=== PATIENT | male | born 1985 | race Caucasian/White ===

== ENCOUNTER → 2018-06-16 | Outpatient (CLI) | payer BC | LOC: ZCOL.LAB 16:35 | DX: Z01.89 Encounter for other specified special examinations (principal) ==

== ENCOUNTER → 2019-12-14 | Outpatient (CLI) | payer BC, MEDICAID | LOC: ZCOL.LAB 16:27 | DX: L02.11 Cutaneous abscess of neck (principal) ==

== ENCOUNTER → 2020-02-17 | Outpatient (CLI) | payer BC ==
[2020-02-17 13:19] LABS: BASO # 0.1 (0.0-0.2); BASO % 0.7 % (0.0-2.0); EOS # 0.3 (0.0-0.7); EOS % 2.3 % (0-4.0); GRAN # 10.1 (1.4-6.5); GRAN % 68.7 % (42.2-75.2); HEMATOCRIT 42.1 % (42.0-52.0); HEMOGLOBIN 13.8 g/dl (13.5-18.0); LYMPH # 3.1 (1.2-3.4); LYMPH % 21.4 % (20.0-51.0); MEAN CELL VOLUME 86 fl (80.0-100.0); MEAN CORPUSCULAR HEMOGLOBIN 28 pg (27.0-31.0); MEAN CORPUSCULAR HGB CONC 33 g/dl (33.0-37.0); MEAN PLATELET VOLUME 9.1 fl (7.4-10.4); MONO % 6.6 % (1.7-9.3); PLATELET COUNT 437 K/mm3 (130-400); REDCELL DISTRIBUTION WIDTH-CV 13.8 % (11.5-14.5)
[2020-02-17 13:30] LABS: ALBUMIN 4.2 gm/dL (3.5-5.0); BILIRUBIN,TOTAL 0.5 mg/dL (0.0-1.0); CALCIUM 9.5 mg/dL (8.4-10.2); CREATININE, serum 0.72 (0.66-1.25); POTASSIUM 3.8 mmol/L (3.4-5.0); TOTAL PROTEIN 9.5 gm/dL (6.4-8.2)
== END ==
LOC: COL.RAD 12:06
PROVIDERS: Registered Nurse
DX: R19.5 Other fecal abnormalities (principal); R10.9 Unspecified abdominal pain

== ENCOUNTER 2020-09-18 08:15 | Inpatient (IN) | payer BC ==
[~2020-09-18] VITALS: Ht 175.3 cm; Wt 167.0 kg
[2020-09-18 10:00] LABS: BASO # 0.1 (0.0-0.2); BASO % 0.3 % (0.0-2.0); EOS % 0.1 % (0-4.0); GRAN % 84.9 % (42.2-75.2); HEMATOCRIT 42.2 % (42.0-52.0); HEMOGLOBIN 13.9 g/dl (13.5-18.0); LYMPH # 1.1 (1.2-3.4); LYMPH % 7.2 % (20.0-51.0); MEAN CELL VOLUME 85 fl (80.0-100.0); MEAN CORPUSCULAR HEMOGLOBIN 28 pg (27.0-31.0); MEAN CORPUSCULAR HGB CONC 33 g/dl (33.0-37.0); MEAN PLATELET VOLUME 9.1 fl (7.4-10.4); MONO # 1.1 (0.1-0.6); MONO % 7.1 % (1.7-9.3); PLATELET COUNT 414 K/mm3 (130-400); RED BLOOD COUNT 4.94 M/mm3 (4.20-5.60); REDCELL DISTRIBUTION WIDTH-CV 14.2 % (11.5-14.5)
[2020-09-18 10:13] LABS: BILIRUBIN,TOTAL 0.5 mg/dL (0.0-1.0); CALCIUM 9.3 mg/dL (8.4-10.2); CREATININE, serum 0.84 (0.66-1.25); POTASSIUM 4.2 mmol/L (3.4-5.0); TOTAL PROTEIN 8.9 gm/dL (6.4-8.2)
[2020-09-18 10:25] LABS: C-REACTIVE PROTEIN 26.9 mg/dL (0.0-0.9)
[2020-09-18] MEDS ORDERED: CIPRO 500MG TA500 MG PO (11:31)
[2020-09-18] MEDS ORDERED: FLAGYL500 MG PO (11:31)
[2020-09-18 12:00] VITALS: BP 125/75; PULSE 94; TEMP 98
[2020-09-18] MEDS ORDERED: MOTRIN 400400 MG/TAB PO (13:17)
[2020-09-18 14:54] LABS: CALCIUM 9.1 mg/dL (8.4-10.2); CREATININE, serum 0.77 (0.66-1.25); POTASSIUM 4.1 mmol/L (3.4-5.0)
--- NOTE | 2020-09-18 14:55 | NUR ---
Patient admitted to room 324 from Er. Admission paperwork completed. Patient had severe pain upon arrival to room, diladid per orders. Ivf as ordered. Clears provided. Will monitor closely.
[2020-09-18 15:24] VITALS: BP 152/66; PULSE 105; TEMP 98.5
[2020-09-18 17:41] LABS: COLLECTION METHOD CLEAN CATCH
[2020-09-18 18:02] LABS: MUCOUS Present /lpf; PH 5 (5-8); SQUAMOUS EPITHELIAL None Seen /hpf; URINE APPEARANCE Clear; URINE BACTERIA None Seen /hpf; URINE BILIRUBIN Negative (NEGATIVE); URINE BLOOD 1+ (NEGATIVE); URINE COLOR Amber; URINE GLUCOSE Negative (NEGATIVE); URINE KETONE Trace (NEGATIVE); URINE LEUKOCYTE ESTERASE Negative (NEGATIVE); URINE NITRATE Negative (NEGATIVE); URINE PROTEIN(semi-quant) 1+ (NEGATIVE); URINE RBC None Seen /hpf; URINE UROBILINOGEN Negative (NEGATIVE)
--- NOTE | 2020-09-18 18:25 | NUR ---
Patient resting in bed. He was up to the bathroom able to void dark urine. Ua sent to lab. Pain elevated after movement. Request pain medication. Dilaudid per orders. Iv antibioitic as ordered. Tolerates sip of clears. Will report off to nightnurse
[2020-09-18 19:54] VITALS: BP 130/67; PULSE 98; TEMP 98.8
[2020-09-18 23:42] VITALS: BP 130/77; PULSE 101; TEMP 97.3
[2020-09-19 03:13] VITALS: BP 126/78; PULSE 107; TEMP 98
--- NOTE | 2020-09-19 06:15 | NUR ---
PT IN BED. UP INDEPENDENTLY, SHOWERED. DILAUDID FOR ABDOMINAL PAIN. PT DID HAVE ONE EMESIS DURING THE NIGHT. AFEBRILE.
[2020-09-19 07:06] LABS: HEMATOCRIT 44.6 % (42.0-52.0); HEMOGLOBIN 14.3 g/dl (13.5-18.0); MEAN CELL VOLUME 88 fl (80.0-100.0); MEAN CORPUSCULAR HEMOGLOBIN 28 pg (27.0-31.0); MEAN CORPUSCULAR HGB CONC 32 g/dl (33.0-37.0); MEAN PLATELET VOLUME 9.7 fl (7.4-10.4); PLATELET COUNT 433 K/mm3 (130-400); RED BLOOD COUNT 5.08 M/mm3 (4.20-5.60); REDCELL DISTRIBUTION WIDTH-CV 14.3 % (11.5-14.5)
[2020-09-19 07:24] VITALS: BP 133/71; PULSE 94; TEMP 97.7
--- NOTE | 2020-09-19 07:24 | NUR ---
Critical WBC 30 called to - no new orders at this time. Patient reports pain much improved. 06/25. Denies needing dilaudid. Denies nausea. Interested in clear liquids. Broth and jello provided. He is very concerned about having and empty stomach. He is also concerned with needing to have pass flatus.
[2020-09-19 09:00] LABS: BAND 8 % (0-10); LYMPHOCYTE 7 % (20.0-51.0); METAMYELOCYTE 1 % (0-0); NEUTROPHILS 77 % (42.0-75.2)
[2020-09-19 09:01] LABS: PLATELET ESTIMATE INCREASED (NORMAL)
--- NOTE | 2020-09-19 10:36 | NUR ---
Initial visit; Patient thanked Spiritual Advisor for looking in on him and keeping him in Spiritual Advisor's prayers. Spiritual Advisor offered God's blessings.
[2020-09-19 11:59] VITALS: BP 136/72; PULSE 95; TEMP 98.1
--- NOTE | 2020-09-19 12:08 | NUR ---
Plan is to return home. Patient reports that he resides locally and has a friend Luna Jacob as an EMR contact. Patient shares that he lives alone. Patient reports that is PCP is Eula He. Patient reports last appointment in January2020. Patient report that he uses [facility] for Pharmacy and has the walker while in stay. Patient reports that his goals are to walk better/steadier prior to DC. Denies having a DPOA. Declines home health care. Educated on services available. No additional concerns idntified at this time. Will follow for supports.
--- NOTE | 2020-09-19 14:09 | NUR ---
Patient resting in bed. Iv to left upper arm dc, patient reports pain at IV site. Marilee HERNANDEZ restarted new IV for patient to Rfa, he tolerated well. Was able to receive pain, nausea , and antibioics medications. Instructed patient to take it easy with clear liquids if they are increased abdominal pain. He continues to describe pain as gas pain.
[2020-09-19 16:30] VITALS: BP 133/69; PULSE 97; TEMP 98.4
--- NOTE | 2020-09-19 17:40 | NUR ---
Patient taking it easy with liquids. He is concerned about having an empty stomach-reviewed IVF with him & that they will keep him hydrated. Dialudid as ordered for pain. Encouraged patient to get up and ambulate the halls.
--- NOTE | 2020-09-19 19:32 | NUR ---
REPORT RECEIVED FROM NURSE RDZ. PATIENT RESTING IN BED. REPORT GOOD PAIN CONTROL, STILL C/O OF NAUSEA, ZOFRAN GIVEN 15 MINUTE PRIOR. WILL CONTINUE TO MONITOR.
[2020-09-19 20:17] VITALS: BP 134/66; PULSE 108; TEMP 97.6
[2020-09-20 00:16] VITALS: BP 117/51; PULSE 94; TEMP 98.4
[2020-09-20 04:07] VITALS: BP 125/70; PULSE 105; TEMP 98.1
[2020-09-20 06:51] LABS: HEMATOCRIT 38.8 % (42.0-52.0); HEMOGLOBIN 12.9 g/dl (13.5-18.0); MEAN CELL VOLUME 86 fl (80.0-100.0); MEAN CORPUSCULAR HEMOGLOBIN 29 pg (27.0-31.0); MEAN CORPUSCULAR HGB CONC 33 g/dl (33.0-37.0); PLATELET COUNT 379 K/mm3 (130-400); RED BLOOD COUNT 4.49 M/mm3 (4.20-5.60)
[2020-09-20 07:05] LABS: CALCIUM 8.7 mg/dL (8.4-10.2); CREATININE, serum 0.81 (0.66-1.25); POTASSIUM 4.1 mmol/L (3.4-5.0)
--- NOTE | 2020-09-20 07:14 | NUR ---
CRITICAL WBC CALLED TO UPDATE GIVEN
[2020-09-20 07:50] LABS: C-REACTIVE PROTEIN 34.9 mg/dL (0.0-0.9)
[2020-09-20 08:39] VITALS: BP 119/66; PULSE 89; TEMP 98.4
--- NOTE | 2020-09-20 08:48 | NUR ---
Patient resting in bed. rounded & plan of care reviewed. Offered to ambulate halls with patient & he is wanting to try & sleep at this time. Denies the need for pain medication. Will monitor.
--- NOTE | 2020-09-20 11:08 | NUR ---
Mechanical Developer Prover met with the patient to follow up. The patient plans to return home at discharge. The patient expressed concerns about returning home alone if he has surgery. SW discussed options. SW staffed with the patient's nurse regarding the patient's concerns. It is still not known if the patient will have surgery at this time. SW will continue to follow to ensure the safest discharge possible.
[2020-09-20 12:03] VITALS: BP 108/60; PULSE 94; TEMP 98.6
--- NOTE | 2020-09-20 12:06 | NUR ---
Again asked patient to walk halls, refuses at this time. States he is too tired. Will octaviano.
--- NOTE | 2020-09-20 13:16 | NUR ---
Patient standing at his bedside. Reports a "boil" opened up. Bandaid provided. Jacob reports he has been in the bathroom an had a loose stool.
[2020-09-20 15:55] VITALS: BP 108/57; PULSE 91; TEMP 98.9
--- NOTE | 2020-09-20 19:29 | NUR ---
Patient in positive spirits. Reports he is feeling better. He continues to use clear liquids sparingly. Nausea medication provided per requst, but he did not feel like he needed pain medication. He reports flatus & Bms have "opened" him up. Ivf per order to Rfa. Continue to encourage activity, not wanting to ambulte halls. [facility]
[2020-09-20 20:24] VITALS: BP 108/60; PULSE 94; TEMP 98.7
[2020-09-21] VITALS (7 sets, daily range): BP systolic 96–123; BP diastolic 46–59; PULSE 74–95; TEMP 97.3–98.5
--- NOTE | 2020-09-21 06:04 | NUR ---
PATIENT REPORT FELLING MUCH BETTER TODAY. CONTINUES TO TAKE ONLY SIP OF WATER TO PREVENT BLODDING. NAUSEA MEDICATION GIVEN X1 AND DILAUDID IV X2 ORDERED. PATIENT HAD A SHOWER LAST NIGHT. PATIENT INDEPENDENT IN ROOM. CONTINUE WITH IVF AND IV ABX. WILL CONTINUE TO MONITOR.
[2020-09-21 06:59] LABS: HEMOGLOBIN 11.4 g/dl (13.5-18.0); MEAN CELL VOLUME 87 fl (80.0-100.0); MEAN CORPUSCULAR HEMOGLOBIN 28 pg (27.0-31.0); MEAN CORPUSCULAR HGB CONC 33 g/dl (33.0-37.0); MEAN PLATELET VOLUME 9.5 fl (7.4-10.4); PLATELET COUNT 421 K/mm3 (130-400); RED BLOOD COUNT 4.03 M/mm3 (4.20-5.60)
[2020-09-21 07:07] LABS: CALCIUM 8.3 mg/dL (8.4-10.2); CREATININE, serum 0.95 (0.66-1.25); POTASSIUM 3.6 mmol/L (3.4-5.0)
[2020-09-21 07:34] LABS: C-REACTIVE PROTEIN 20.6 mg/dL (0.0-0.9)
--- NOTE | 2020-09-21 10:01 | NUR ---
Patient is resting in bed, alert and oriented x 4, vital signs stable, no pain, nausea or vomiting. Patient discomfort in the abdomen but tolerated. No further needs at the moment. Call light within reach.
--- NOTE | 2020-09-21 10:43 | NUR ---
AGREE WITH BRYCE'S ASSESSMENTS CHARTED THIS AM.
--- NOTE | 2020-09-21 18:45 | NUR ---
Patient is resting in bed. He just received his dose of antibiotics. Reports pain of 5 out of 10, in his abdomen. Refuses pain medication. No further needs at the moment. Call ligth within reach.
--- NOTE | 2020-09-21 19:10 | NUR ---
REPORT RECEIVED FROM OUT GOING NURSE. PATIENT FOUND RESTING IN BED. ON NO DISTRESS AT THIS TIME. CALL WITHIN REACH.
[2020-09-22 03:38] VITALS: BP 119/60; PULSE 87; TEMP 97.5
[2020-09-22 06:35] LABS: C-REACTIVE PROTEIN 8.5 mg/dL (0.0-0.9); CALCIUM 8.1 mg/dL (8.4-10.2); CREATININE, serum 0.77 (0.66-1.25); POTASSIUM 3.5 mmol/L (3.4-5.0)
[2020-09-22 07:19] VITALS: BP 113/52; PULSE 80; TEMP 98
--- NOTE | 2020-09-22 08:15 | NUR ---
Pt resting in bed up on entering the room. Pt states that he has been getting up almost hourly to have a bowel movement. He reports feeling bloated and has only had approximately 120ml to drink through the night. Pt reports feeling steady on his feet. Pt stated that someone will be dropping off clothes for him and then he would like to shower. Informed pt to notify nursing when he is ready. No other needs, will continue to monitor
[2020-09-22 09:00] LABS: HEMATOCRIT 33.3 % (42.0-52.0); HEMOGLOBIN 10.6 g/dl (13.5-18.0); MEAN CELL VOLUME 88 fl (80.0-100.0); MEAN CORPUSCULAR HEMOGLOBIN 28 pg (27.0-31.0); MEAN CORPUSCULAR HGB CONC 32 g/dl (33.0-37.0); MEAN PLATELET VOLUME 9.7 fl (7.4-10.4); PLATELET COUNT 429 K/mm3 (130-400); REDCELL DISTRIBUTION WIDTH-CV 14.2 % (11.5-14.5)
--- NOTE | 2020-09-22 11:12 | NUR ---
Informed pt that he is able to order a low fiber diet, educated pt on room service.
[2020-09-22 12:00] VITALS: BP 117/58; PULSE 73; TEMP 98.2
--- NOTE | 2020-09-22 15:00 | NUR ---
Pt tolerated his low fiber diet, Dr Byrd has been in to see patient, no new orders at this time. No other needs verbalized, will continue to monitor
[2020-09-22 15:41] VITALS: BP 111/47; PULSE 81; TEMP 97.9
--- NOTE | 2020-09-22 18:10 | NUR ---
Pt currently sitting up in the chair. States that his abd is a little more uncomfortable right now, but denies the need for pain medication. He has ordered something to eat for dinner. No other needs or complaints, call light within reach
[2020-09-22 19:44] VITALS: BP 119/50; PULSE 75; TEMP 98.6
--- NOTE | 2020-09-22 21:36 | NUR ---
PATIENT RESTING IN BED. ALERT AND ORIENTED. PATIENT REPORT HIS BELLY IS ADRY BETTER. TOLERATING LOW FIBER DIET. DENIES NAUSEA/VOMITING TODAY. REPORTS MOVING HIS BOWEL MULTIPLE TIME A DAY WITH GOOD RELEIVES FROM HIS BELLY BLOATING. PATIENT INDEPENDENT IN ROOM. TAKE A SHOWER TONIGHT. PLAN FOR POSSIBLE DISCHARGE TOMORROW.
[2020-09-23 00:08] VITALS: BP 125/52; PULSE 79; TEMP 98
[2020-09-23 04:04] VITALS: BP 124/72; PULSE 72; TEMP 97
[2020-09-23 07:05] LABS: HEMATOCRIT 35.9 % (42.0-52.0); HEMOGLOBIN 11.6 g/dl (13.5-18.0); MEAN CELL VOLUME 88 fl (80.0-100.0); MEAN CORPUSCULAR HEMOGLOBIN 29 pg (27.0-31.0); MEAN CORPUSCULAR HGB CONC 32 g/dl (33.0-37.0); PLATELET COUNT 466 K/mm3 (130-400); RED BLOOD COUNT 4.06 M/mm3 (4.20-5.60); REDCELL DISTRIBUTION WIDTH-CV 14.2 % (11.5-14.5)
[2020-09-23 07:24] VITALS: BP 127/49; PULSE 72; TEMP 97.9
--- NOTE | 2020-09-23 09:30 | NUR ---
Pt doing well this morning. He reported that he had a great night and was able to get some sleep. He is tolerating the low fiber diet. Pt plans on going home today. No other needs verbalized, will continue to monitor
[2020-09-23 11:44] VITALS: BP 120/58; PULSE 76; TEMP 97.4
--- NOTE | 2020-09-23 14:13 | NUR ---
Reviewed discharge instructions with pt to include follow up appointment and prescriptions. INT removed from right forearm. Pt escorted out via wheelchair.
--- NOTE | 2020-09-23 14:36 | NUR ---
The patient discharged home today, 09/23. He is independent and has no needs.
[2020-12-19] MEDS ORDERED: ROXICODONE 55 MG/TAB PO (10:52)
[2020-12-19] MEDS ORDERED: AMOXICILLIN 8751 TAB PO (10:53)
[2020-12-27] MEDS ORDERED: CIPRO 500MG TA500 MG PO (08:30)
[2020-12-27] MEDS ORDERED: ZOFRAN 4MG T4 MG/TAB PO (08:31)
[2020-12-27] MEDS ORDERED: PERCOCET 325 MG1 TA2 PO (08:31)
[2021-01-11] MEDS ORDERED: INVANZ INJ1 G/VIAL IV (09:20)
[2021-01-11] MEDS ORDERED: DIFLUCAN 4400 MG/200 IV (09:21)
[2021-01-12] MEDS ORDERED: PERCOCET 325 MG1 TA2 PO (07:57)
[2021-01-17] MEDS ORDERED: ROXICODONE 55 MG/TAB PO (14:03)
[2021-01-27] MEDS ORDERED: ROXICODONE 55 MG/TAB PO (17:05)
[2021-02-08] MEDS ORDERED: ROXICODONE 55 MG/TAB PO (08:42)
== END 2020-09-23 14:14 | disposition home or self-care (01) | DRG 392 ==
LOC: COL.ER 08:15 → SURG 11:20
PROVIDERS: Family Medicine; ADMIT Surgery
DX: K57.20 Diverticulitis of large intestine with perforation and abscess without bleeding (principal); Z68.43 Body mass index [BMI] 50.0-59.9, adult; E66.01 Morbid (severe) obesity due to excess calories; Z87.891 Personal history of nicotine dependence
CPT/HCPCS: J1170; J1650; J2270; J2405; J2543; J7120; Q9967

== ENCOUNTER 2020-11-08 16:02 | Inpatient (IN) | payer BC ==
[~2020-11-08] VITALS: Ht 175.3 cm; Wt 146.3 kg
[~2020-11-08 16:02] MED LIST: CIPRO 500MG TA500 MG PO; FLAGYL500 MG PO; MOTRIN 400400 MG/TAB PO
[2020-11-23] VITALS (10 sets, daily range): BP systolic 88–125; BP diastolic 54–80; PULSE 81–94; TEMP 97–97.9
[2020-11-23] MEDS ORDERED: MOTRIN 200200 MG/TAB PO (08:03)
[2020-11-23] MEDS ORDERED: TYLENOL 325MG325 MG PO (08:03)
--- NOTE | 2020-11-23 08:27 | NUR ---
The patient ambulated back to [place] independently using a steady gait and appeared to tolerate the activity well. Vital signs obtained. Consent signed. Assessment completed. 18G IV started in right hand with one stick, LR infusing without difficulty. Blood obtained from IV start for labs as ordered. Call light is within reach. Will continue to monitor the patient.
[2020-11-23 08:29] LABS: BASO # 0.1 (0.0-0.2); BASO % 1.4 % (0.0-2.0); EOS # 0.2 (0.0-0.7); EOS % 2.8 % (0-4.0); GRAN % 58.2 % (42.2-75.2); HEMATOCRIT 40.9 % (42.0-52.0); HEMOGLOBIN 13.3 g/dl (13.5-18.0); LYMPH # 2.6 (1.2-3.4); MEAN CELL VOLUME 82 fl (80.0-100.0); MEAN CORPUSCULAR HEMOGLOBIN 27 pg (27.0-31.0); MEAN CORPUSCULAR HGB CONC 33 g/dl (33.0-37.0); MEAN PLATELET VOLUME 8.4 fl (7.4-10.4); MONO # 0.5 (0.1-0.6); MONO % 6.2 % (1.7-9.3); PLATELET COUNT 624 K/mm3 (130-400); RED BLOOD COUNT 4.97 M/mm3 (4.20-5.60); REDCELL DISTRIBUTION WIDTH-CV 14.9 % (11.5-14.5)
[2020-11-23 08:40] LABS: CALCIUM 9.5 mg/dL (8.4-10.2); CREATININE, serum 0.77 (0.66-1.25)
--- NOTE | 2020-11-23 09:45 | NUR ---
The patient was taken over to the recovery room to have a block placed prior to surgery. The patient's chart was taken with him. The patient's belongings were taken over to the recovery room and will be transferred with the patient when he is taken to the 3rd floor post operatively.
[2020-11-23 18:47] LABS: HEMATOCRIT 40.7 % (42.0-52.0); HEMOGLOBIN 12.7 g/dl (13.5-18.0)
--- NOTE | 2020-11-23 19:18 | NUR ---
Dr Byrd notified of hypotension, continue to monitor.
--- NOTE | 2020-11-23 19:30 | NUR ---
Report received, assumed care for overnight caregiver. Assessment complete. A&Ox3-drowsy. Currently on post op vitals-noted to by slightly hypotensive earlier today but improving. Rating pain 7/10 on pain scale-described as sharp pains in abdomen on right side as well as shoulder pain. Discussed gas pains and need for early ambulation to help with pains. Verbalizes understanding. IS given with instruction on use. Noted to have yellow urine to cole cath with sediment. Draining well. IV fluids continue to infuse to right wrist IV. Has not tolerated any PO. Denies nausea just states he doesnt want anything to eat. Plan of care discussed for this shift to include medications/up out of bed/calling for questions/concerns. Verbazlies understanding/denies needs. Call light in reach. Will monitor.
[2020-11-24] VITALS (10 sets, daily range): BP systolic 116–136; BP diastolic 64–92; PULSE 77–121; TEMP 97.2–98.7
--- NOTE | 2020-11-24 00:50 | NUR ---
Patient still rating pain 8/10 on pain scale despite receiving PO pain meds as well as two doses of IV dilaudid. VS more stable now-dilaudid BLACK PICKLER initiated per dr order. Loading dose given with instructions on use for next dose. Notified RT of BLACK PICKLER initiation. Verbalizes understanding/denies questions.
--- NOTE | 2020-11-24 02:11 | NUR ---
Called with c/o nausea. Dry heaving when this nurse went to room. Zofran given per dr ferrari. States DRAFTER MECHANICAL is managing pain much better. Will continue to monitor.
--- NOTE | 2020-11-24 04:55 | NUR ---
Called with c/o nausea. States he thinks his blood sugar is low. When asked if he has problems with blood sugar states "No, I just know sometimes when I havent eaten i feel like its low and i eat and feel better." Blood sugar checked at this time-128. Requesting OJ but on clear liquid diet and has complained of nausea. Diet ordered is clear liquids sparingly. Will offer jello/clear juice.
--- NOTE | 2020-11-24 06:36 | NUR ---
Has not tolerated a lot of PO but order to not advance diet/and use sparingly. Did complain of hiccups this morning. Received zofran for nausea. Switched to HOLISTIC HEALTH PRACTITIONER at approx 0050 with good pain relief. VS remained stable. IV fluids continue to infused at 100ml/hr. Morrow cath with adequate output. Denies current needs. Call light in reach. Will monitor.
[2020-11-24 07:07] LABS: HEMATOCRIT 37.5 % (42.0-52.0); HEMOGLOBIN 12.2 g/dl (13.5-18.0)
[2020-11-24 07:21] LABS: CALCIUM 8.8 mg/dL (8.4-10.2); CREATININE, serum 1.24 (0.66-1.25); MAGNESIUM 1.7 mg/dL (1.6-2.3); POTASSIUM 5.3 mmol/L (3.4-5.0)
--- NOTE | 2020-11-24 08:08 | NUR ---
PT IS SITTING UP IN BED, COMPLAINTS OF LEFT SIDED SHOULDER ET FLANK PAIN. RATES PAIN 10/10. PT REFUSES TO EAT @ THIS TIME, STATES THAT THE PAIN IS TOO MUCH. PT IS ASSISTED TO CHANGE INTO A CLEAN GOWN ET BED SHEETS ARE CHANGED.
--- NOTE | 2020-11-24 08:33 | NUR ---
PT CALMER @ THIS TIME. RESPIRATIONS UNLABORED. PT THANKS STAFF FOR PATIENCE. PT LAYS BACK INTO BED WITH ASSISTANCE. LOVENOX ET MOTRIN ADMINSTERED. PT GIVEN JELLO TO EAT, MORE ICE WATER REQUESTED.
--- NOTE | 2020-11-24 13:33 | NUR ---
PT IS VOMITING, APPEARS TO BE GREEN GATORADE THAT HE HAS BEEN DRINKING. PT IS ENCOURAGED TO SLOW DRINKING FLUIDS TO DECREASE VOMITING/NAUSEA. PT INSISTS ON DRINKING MORE, STATES "DR AND I HAVE TALKED ABOUT THIS BEFORE ET I NEED TO DRINK MORE TO MAKE MYSELF VOMIT MORE TO CLEAR UP WHAT'S STUCK."
--- NOTE | 2020-11-24 14:40 | NUR ---
First visit from the disaster recovery specialist. No needs right now.
--- NOTE | 2020-11-24 15:13 | NUR ---
PT IS VOMITING. EMESIS IS BRIGHT GREEN LIKE GATORADE HE HAS BEEN DRINKING. PT AGREES TO STOP DRINKING FLUIDS FOR AWHILE. DRESSING ON MIDLINE ABDOMINAL INCISION IS INTACT, SAME AMOUNT OF DRAINAGE SEEN THROUGH AQU[facility]LL WAS SEEN THIS MORNING. PT AGREES TO ALLOW DRESSING TO BE CHANGED AFTER HIS "STOMACH CALMS DOWN".
[2020-11-24 15:18] LABS: CALCIUM 8.8 mg/dL (8.4-10.2); CREATININE, serum 1.85 (0.66-1.25); POTASSIUM 5.3 mmol/L (3.4-5.0)
--- NOTE | 2020-11-24 15:26 | NUR ---
KAROLYN attempted to meet with patient twice; both times patient stated he was too nautious to talk. He requested that this worker return tomorrow. KAROLYN will f/up 11/25 to assess.
--- NOTE | 2020-11-24 17:51 | NUR ---
Dressing changed on midline incision. Old drainage on aquacell. Patient currently has no complaints of nausea and pain has been controlled with TREASURY ACCOUNTANT. VSS. IV CDI, fluids infusing. Nurse provided swabs to the patient. No further needs expressed. Call light within reach
--- NOTE | 2020-11-24 17:58 | NUR ---
AQUACELL DRESSING CHANGED ON MIDLINE ABDOMINAL INCISION. SCOTT INTACT, WELL APPROXIMATED. PT TOLERATES WELL.
--- NOTE | 2020-11-24 19:00 | NUR ---
RECEIVED CHANGE OF SHIFT REPORT FROM DAY SHIFT NURSE.
[2020-11-25] VITALS (9 sets, daily range): BP systolic 122–138; BP diastolic 60–73; PULSE 69–134; TEMP 97.6–99
--- NOTE | 2020-11-25 07:26 | NUR ---
CHANGE OF SHIFT REPORT GIVEN TO DAY SHIFT NURSE, KALPESH HERNANDEZ AND STUDENT NURSESANYA.
[2020-11-25 08:49] LABS: HEMOGLOBIN 11.3 g/dl (13.5-18.0)
[2020-11-25 08:51] LABS: HEMATOCRIT 35.2 % (42.0-52.0)
[2020-11-25 09:00] LABS: CALCIUM 8.2 mg/dL (8.4-10.2); CREATININE, serum 2.03 (0.66-1.25); POTASSIUM 4.8 mmol/L (3.4-5.0)
--- NOTE | 2020-11-25 09:21 | NUR ---
SW met with patient at b/s after 2 prior failed attempts. Patient states he lives alone in apartment w/ stairs in [place]; no family or support in immediate area. No parents but lots of family members in [place]. Patient states his cousin, Marie Salgado is his DPOA. He has no DME's, states he is fully independent, works f/t and has insurance through [facility]. Per patient PCP is Eula Hinojosa. *Anticipate d/c home with no needs
--- NOTE | 2020-11-25 09:43 | NUR ---
Notified Dr Byrd of todays labs. New orders received. Discussed pain management with him as he didn't want anything as he was told it would slow down bowel activity. Stated that he still needs to be able get up as staying in bed will also not help.
--- NOTE | 2020-11-25 10:00 | NUR ---
Dressing removed by Dr Byrd earlier this am. Incision mostly well approximated, couple areas it is open with minimal drainage. Incision cleaned and new aquacel applied. Pt did have complaints of pain when I put the bed flat. Discussed importance of moving and not staying in one position.
--- NOTE | 2020-11-25 11:00 | NUR ---
Pt recently stood up at side of bed with help from MACT student. Pt had a lot of pain complaints and was reported that he did start to have rapid shallow breathing. Educated pt that he needs to work on slow deep breaths. Pt did and started to appear more relaxed. Had him do his incentive spirometer. Pt did a rapid short breath and then sat it down. Worked with pt on the proper was to use the IS. Informed him that he needs to do it several times an hour and slow deep breaths to open his lungs.
--- NOTE | 2020-11-25 13:45 | NUR ---
Pt has been nauseated most of the day. Educated him to take fluids slow and only sips. He is refusing oral medicaiton
--- NOTE | 2020-11-25 14:51 | NUR ---
pt resting with eyes closed, even non labored breathing
--- NOTE | 2020-11-25 16:47 | NUR ---
Notified Dr Byrd of pt being tachy, will give pain medication
--- NOTE | 2020-11-25 16:55 | NUR ---
Offered oral pain medication to pt, pt refused, stated that it does not help. Encouraged him to use his BUSINESS ASSISTANT pain medication to help get pain under control.
--- NOTE | 2020-11-25 18:21 | NUR ---
Pt unable to get IS above 500. Pt had to be re-educated on proper use. He only wanted to do it once, had him do at least 5. Reminded him that he needs to be doing it every hour.
--- NOTE | 2020-11-25 23:56 | NUR ---
Patient c/o shortness of breath, SPO2@ 92%, Resp rate 24, Pulse 135, Call placed to Dr. Richard NON: decrease fluids to 100ml/hr, telemetry, EKG. Completed at this time. Patient updated on plan of care and verbalizes understanding.
[2020-11-26] VITALS (8 sets, daily range): BP systolic 124–146; BP diastolic 59–82; PULSE 115–120; TEMP 97.8–98.8
--- NOTE | 2020-11-26 04:50 | NUR ---
Patient is resting quietly, ambulated x 2 in hallway during shift, tolerated well, telemetry in use ST Dickson MD aware, STUCCO PLASTERER in use- tolerating well, midline incision with dressing c/d/i, 5 abdominal lap sites wnl, cole with dark shaniqua urine per gravity, VS stable, will continue to monitor.
--- NOTE | 2020-11-26 10:00 | NUR ---
Patient alert and oriented, answers questions appropriately. See assessment. Abdomen soft, obese. Bowel sounds absent except for hypoactive in RLQ. Midline incision and lap sites with aurelia intact, no drainage noted, MANAGER PART. Lungs decreased in bases, clear in upper lobes. CDB and IS re-educated and encouraged. Post op exercises reviewed with patient. Offered x2 to assist patient to ambulate in walls, declined both times. Encouraged ambulation and activity to decrease post op complications. Patient not interested in activity. No other c/o at this time.
[2020-11-26 10:06] LABS: CALCIUM 8.3 mg/dL (8.4-10.2); CREATININE, serum 1.07 (0.66-1.25)
--- NOTE | 2020-11-26 11:41 | NUR ---
Cole catheter removed at 1000 per Drs order. Pericare completed. Voided 200ml immediately after cole removal.
--- NOTE | 2020-11-26 19:19 | NUR ---
Patient re-educated several times today about importance of CDB, IS and ambulation. Frequently declined ambulation in halls. No c/o at this time.
[2020-11-27] VITALS (9 sets, daily range): BP systolic 134–142; BP diastolic 63–78; PULSE 100–119; TEMP 97.6–99.1
--- NOTE | 2020-11-27 04:07 | NUR ---
Patient resting quietly, Dr. Richard inserted L subclavian triple lumen picc line during this shift, patient tolerated well, Xray confirmed placement, tolerating Dilaudid POLYSOMNOGRAPH TECH w/o issue, ambulated x 1 in the hallway this shift, VS stable, abdomen with aurelia intact to midline incision and 5 lap sites, no s/s of infection noted, hypoactive BS noted.
--- NOTE | 2020-11-27 10:30 | NUR ---
Patient alert and oriented, answers questions appropriately. See assessment. Abdomen soft, obese, non distended. Bowel sounds hypoactive x4 quads. No flatus. Midline and lap sites to abdomen with aurelia intact, JOSE, no drainage or redness noted. Left subclavian in place, dressing intact, scant drainage noted, flushes well with blood return noted. QM CONSULTANT infusing. Post op exercises and activity reviewed with patient. Patient states he remains too weak to do much activity and would prefer to remain in bed for the day. Reviewed with patient the importance of activity and complying with post op exercises. Patient reluctantly ambulated in halls and sits up in chair.
[2020-11-27 10:58] LABS: MEAN CELL VOLUME 85 fl (80.0-100.0); MEAN CORPUSCULAR HGB CONC 31 g/dl (33.0-37.0); MEAN PLATELET VOLUME 9.1 fl (7.4-10.4); PLATELET COUNT 463 K/mm3 (130-400); RED BLOOD COUNT 3.22 M/mm3 (4.20-5.60); REDCELL DISTRIBUTION WIDTH-CV 15.7 % (11.5-14.5)
[2020-11-27 10:59] LABS: HEMATOCRIT 27.4 % (42.0-52.0); HEMOGLOBIN 8.6 g/dl (13.5-18.0); MEAN CORPUSCULAR HEMOGLOBIN 27 pg (27.0-31.0)
[2020-11-27 11:06] LABS: CREATININE, serum 0.78 (0.66-1.25); POTASSIUM 3.5 mmol/L (3.4-5.0)
[2020-11-27 11:35] LABS: BAND 2 % (0-10); LYMPHOCYTE 6 % (20.0-51.0); NEUTROPHILS 85 % (42.0-75.2)
[2020-11-27 11:36] LABS: ANISOCYTOSIS 1+; HYPOCHROMIA 2+; PLATELET ESTIMATE INCREASED (NORMAL)
--- NOTE | 2020-11-27 12:00 | NUR ---
Patient continues to call frequently, for things such as pulling his blanket up and adjusting his oxygen. Patient has also refused to do things such as brush his teeth and wash his own face. States he is too weak to do so. Reviewed with patient importance of performing his own self cares and increasing activity. Patient curses and becomes upset when encouraged to perform self cares, states he is too weak and it causes too much pain. WARD CLERK continues to infuse.
--- NOTE | 2020-11-27 12:28 | NUR ---
KAROLYN called to follow up with spouse Trinity [phone] to secure placement choice. Voicemail left to return call to KAROLYN. KAROLYN will continue to follow up with inquire about choice in placement.
--- NOTE | 2020-11-27 16:00 | NUR ---
Patient requests phone call be placed to Dr Richard to discontinue PRODUCT SAFETY EXPERT and start oral pain medications. Requests oxycodone 10mg vs Hydrocodone, as oxycodone works better for him. Patient also requests to be able to continue the Dilaudid PRODUCT SAFETY EXPERT and initiate oral pain medications. Reviewed with patient narcotic safety. Patient states his pain is 3-4/10, only increases when he has to stand. Reviewed with patient the use of narcotics and bowel function. Patient then states 'I messed up last night then". When prompted, patient states "I hit my pain button every half hour last night until I fell asleep, I didn't really need it, but I wanted to sleep, that probably made my bowel stop working". Reviewed with patient use of PRODUCT SAFETY EXPERT. Dr Richard updated.
--- NOTE | 2020-11-27 20:30 | NUR ---
Patient is resting in bed at 45 degrees. Alert and oriented x VSS, Tele in place. At 3 L 02 high flow nasal canula r/t MASTER MOTORCYCLE TECHNICIAN. Reports constant pain in the abdomen that increases his need to exhale. Assessment completed. Medications provided. No further needs at this time. Call light within reach.
[2020-11-28] VITALS (10 sets, daily range): BP systolic 128–142; BP diastolic 63–76; PULSE 18–110; TEMP 97.8–98.7
--- NOTE | 2020-11-28 06:45 | NUR ---
Patient has been stable all night. Refused to take Tylenol. Continues with JAILKEEPER. He was able to ambulate to the restromm and comeback. Had hygiene. Shift report will be given to day nurse.
[2020-11-28 06:58] LABS: HEMATOCRIT 26.8 % (42.0-52.0); HEMOGLOBIN 8.4 g/dl (13.5-18.0); MEAN CELL VOLUME 88 fl (80.0-100.0); MEAN CORPUSCULAR HEMOGLOBIN 27 pg (27.0-31.0); MEAN CORPUSCULAR HGB CONC 31 g/dl (33.0-37.0); MEAN PLATELET VOLUME 9.5 fl (7.4-10.4); PLATELET COUNT 470 K/mm3 (130-400); RED BLOOD COUNT 3.06 M/mm3 (4.20-5.60); REDCELL DISTRIBUTION WIDTH-CV 15.8 % (11.5-14.5)
[2020-11-28 07:15] LABS: CALCIUM 7.9 mg/dL (8.4-10.2); CREATININE, serum 0.75 (0.66-1.25); POTASSIUM 3.7 mmol/L (3.4-5.0)
[2020-11-28 07:35] LABS: BAND 21 % (0-10); BASOPHIL 1 % (0-2); LYMPHOCYTE 9 % (20.0-51.0); NEUTROPHILS 62 % (42.0-75.2); PLATELET ESTIMATE INCREASED (NORMAL)
--- NOTE | 2020-11-28 11:35 | NUR ---
Patient up to the bathroom. Patient agreeable to get out of bed 20 minutes after he used EXERCISE INSTRUCTOR. He also wanted zofran when he pushed EXERCISE INSTRUCTOR button to prevent nausea. Patient brushed his teeth sitting on the stool. He was able to void & pass flatus in the bathroom. Patient was unable to provide his own pericares. Nurse had to assist with wiping after a small BM. Patient is also belching. Midline abdomen aurelia intact. obese abdomen. Patient refused to ambulate halls at this time. He reports he will later in the afternoon. He also refuses to sit in the chair at this time. I reviewed importance of activity with him. I encouraged him to use IS. Will continues to encoaurge him today.
--- NOTE | 2020-11-28 19:38 | NUR ---
Patient resting in bed. He did ambulate to the nurses station early this evening as well as use the bathroom, he voided on the floor & had a small Bm. nurse again provided pericares because patient reports he is unable to do himself. Reviewed with him importance of accurate I&O. Patient did have dyspnea with exertion, tachycardia & perspiration noted with activity. Walker & gaitbelt was used. another Nurse followed with wheelchair in hallway because apple reported feeling lightheaded. I did discussed with therapy orders for patient. Update given. I did discuss with patient the potential to progress diet & dc LANGUAGE THERAPIST. He is wanting to wait until the am after he sees the doctor. aware. Patient has tolerated clear liquids, but wanting to take zofran because he reports the dilaudid causes nausea. Pillar Worker interval time increased per orders. Apple made aware, but frustrated by this. I discussed with him my concerns of his sleepyness. Overall patient frustrated, continued to try and encourage him & explain plan of care. Bedside report was given to Troy.
--- NOTE | 2020-11-28 20:00 | NUR ---
PATIENT SITTING UP IN BED. ALERT AND ORIENTED X4. PATIENT HAS CENTRAL LINE TO LEFT SUBCLAVIAN. PATIENT HAS KITCHEN UTILITY ASSOCIATE DILAUDID GOING. PATIENT IS ON CLEAR DIET. HAS MIDLINE ABDOMINAL INCISION AND 5 LAP SITES OPEN TO AIR. EDGES WELL APPROXIMATED. PATIENT ON TELE. PATIENT STATES PAIN IS A 5 ON A SCALE OF 10. PATIENT DENIES FURTHER NEEDS AT THIS TIME. CALL LIGHT WITHIN REACH. HEAD TO TOE ASSESSMENT COMPETE.
--- NOTE | 2020-11-28 22:15 | NUR ---
PATIENT UP FOR WALK. WALKED TO END OF FORBES AND BACK TO ROOM. PATIENT UP TO THE BATHROOM BEFORE THIS. STEADY GAIT. PATIENT BACK IN BED. NO FURTHER NEEDS AT THIS TIME. CALL LIGHT WITHIN REACH.
[2020-11-29] VITALS (7 sets, daily range): BP systolic 135–145; BP diastolic 62–76; PULSE 98–107; TEMP 98–99.8
--- NOTE | 2020-11-29 06:18 | NUR ---
PATIENT DID WELL THROUGHOUT THE NIGHT. SLEPT OFF AND ON. DIRECTOR OF MARKETING ANALYTICS REFILLED. PATIENT AMBULATED TO END OF FORBES. STEADY GAIT. PATIENT UP TO BATHROOM THROUGHOUT THE NIGHT USING WALKER. PATIENT HAD 2 BOWEL MOVEMENTS LAST NIGHT. IS REQUESTING DIET CHANGE THIS AM TO HAVE BREAKFAST. NO FURTHER NEEDS AT THIS TIME. CALL LIGHT WITHIN REACH. WILL REPORT TO DAYSHIFT.
--- NOTE | 2020-11-29 06:55 | NUR ---
Pt resting in bed, denies any needs at this time. Call light within reach
[2020-11-29 06:59] LABS: HEMOGLOBIN 8.2 g/dl (13.5-18.0); MEAN CELL VOLUME 85 fl (80.0-100.0); MEAN CORPUSCULAR HEMOGLOBIN 27 pg (27.0-31.0); MEAN CORPUSCULAR HGB CONC 31 g/dl (33.0-37.0); MEAN PLATELET VOLUME 9.3 fl (7.4-10.4); PLATELET COUNT 463 K/mm3 (130-400); RED BLOOD COUNT 3.07 M/mm3 (4.20-5.60); REDCELL DISTRIBUTION WIDTH-CV 15.8 % (11.5-14.5)
[2020-11-29 07:00] LABS: HEMATOCRIT 26.1 % (42.0-52.0)
[2020-11-29 07:12] LABS: CALCIUM 7.7 mg/dL (8.4-10.2); CREATININE, serum 0.71 (0.66-1.25); MAGNESIUM 1.7 mg/dL (1.6-2.3); PHOSPHOROUS 2.2 mg/dL (2.5-4.5); POTASSIUM 3.3 mmol/L (3.4-5.0)
--- NOTE | 2020-11-29 07:55 | NUR ---
Pt resting in bed, appears somewhat drowsy. He stated that he is not hungry for clear liquids at this time, but is hoping to get to advance his diet. Discussed getting rid of the MANNEQUIN MOLD MAKER in hopes we can advance his diet and start more oral pain medication. Discussed continuing with activity. Pt was in agreeance with this. Denies any other needs, call light within reach
--- NOTE | 2020-11-29 09:02 | NUR ---
When in doing morning assessment, offered to assist pt up to the chair and he stated that he was not ready and would later. Just went in pt room to assist him up to the chair. Pt refuse to RN that was helping, I then went in and discussed that he needed to continue with activity and continue improving. He was resisting at first, but then did get in to the chair. Pt did well with a stand by assist. Educated pt that he could start advancing his diet in hopes that he could then start using oral pain medication for pain management. Pt over all did well and was no longer upset with the fact that he had to get up to the chair. Call light within each, will continue to monitor
--- NOTE | 2020-11-29 09:23 | NUR ---
Pt up walking in the halls with PT at this time. Pt using a walker, but is steady on his feet with just a stand by assist.
--- NOTE | 2020-11-29 11:39 | NUR ---
Pt sitting up in the chair eating some lunch. Educated him to not stuff himself and to take eating slowly. Re-educated him on room service and ordering meals. Discussed pain management with Dr Byrd and pt, turned off PUMP AND STILL OPERATOR at this time and started oral pain medication. Pt was okay with this. Informed him to use his call light when he was finished eating and we would assist him back to bed. Call light within reach
--- NOTE | 2020-11-29 12:11 | NUR ---
Pt is back in bed at this time, denies any needs, call light within reach
--- NOTE | 2020-11-29 14:29 | NUR ---
SW met with patient in room and confirmed with patient that he has no spouse. He resides alone in apartment with stairs. SW provided patient with list of home health care providers, based on his insurance. Patient was more pleasant and appeared to be in better spirits. This worker will f/up with patient on his choice of HHC. *D/C home with home health
--- NOTE | 2020-11-29 15:12 | NUR ---
Went in to ask pt if he was ready to go for a walk. He stated that the physical therapist would be in shortly to see him. Upon leaving room, discussed activity with therapy and they stated that pt refused activity. Informed them that he was ready and needing to walk at this time. Informed her that if he refuses to let me know that I can re-educate the importance and that I could take him for a walk.
--- NOTE | 2020-11-29 15:21 | NUR ---
Pt up walking with PT at this time
--- NOTE | 2020-11-29 19:14 | NUR ---
Pt sitting up in bed eating dinner at this time. He stated that his pain is about how it has been all day. Pt is a little short with his responses. Reminded him that he needs to keep moving and working on using his incentive spirometer. He is still only able to get it to 500. Pt continues to keep taking quick shallow breaths vs deep breaths. Encouraged pt to keep up with the activity.
--- NOTE | 2020-11-29 20:50 | NUR ---
Patient is resting in bed, alert and oriented x 4, VSS, no nausea or vomiting. Tele in iplace, using 1L of O2. Lap sites x 5 and abdoment with aurelia, clean dry and edges well approximated. Complains about pain in the abdomen. Following PRN medication. Assessmente completed, meds provided. No further needs at this time. Call light within reach.
[2020-11-30] VITALS (8 sets, daily range): BP systolic 132–148; BP diastolic 54–78; PULSE 80–110; TEMP 98–99.1
--- NOTE | 2020-11-30 05:26 | NUR ---
Patient has had an unrested night. He complains of pain in the abdomen and his back. He is taking scheduled meds. SCDs in place. 1L or O2 nasal canula. He had 2 BM during night. He has been moving from bed to chair to restroom. No further needs at this time. Shift report will be given.
[2020-11-30 07:24] LABS: CALCIUM 7.5 mg/dL (8.4-10.2); CREATININE, serum 0.59 (0.66-1.25); PHOSPHOROUS 2.4 mg/dL (2.5-4.5)
[2020-11-30 07:30] LABS: POTASSIUM 2.9 mmol/L (3.4-5.0)
--- NOTE | 2020-11-30 08:31 | NUR ---
Pt assessment completed and charted, meds administered per may. pt A&O, sitting in recliner at this time. Pt c/o pain to abdomen and rt lower back. PRN pain meds administered per may. Pt states he has had BM and is passing gas. IS used while this nurse in room, up to 750ml 5x. Lap sites and mid abd site CDI. No further concerns expressed.
--- NOTE | 2020-11-30 12:39 | NUR ---
KAROLYN met with patient to discuss his choice of [facility] for D/C plan. Patient's first choice is [facility]. [facility] and [facility] are alternate choices. SW faxed referral to [facility]. Left for Lisbeth, awaiting response
--- NOTE | 2020-11-30 19:10 | NUR ---
Bedside shift report received, assumed care for shift engineer. A&Ox3. Laying in bed visiting with friend. VS have remained stable. Tolerating diet. Voiding without difficulty. Will complete assessment at later time due to visitors. Call light in reach. Will monitor.
--- NOTE | 2020-12-01 03:43 | NUR ---
PT IS LYING IN BED WITH TV ON. LAST DOSE OF POTASSIUM REPLACEMENT ADMINISTERED WITH PT'S PREFERENCE OF GRAPE JUICE. PT STATES THAT MEDICATION DOES UPSET HIS STOMACH. HAS NOT VOMITTED. RATES ABDOMINAL PAIN 5/10 @ THIS TIME. SUGGESTED TO PT THAT TAKING A WALK WHILE HE IS AWAKE WOULD BE A GOOD IDEA. ENCOURAGED PT TO CALL WHEN HE IS READY TO WALK IN FORB[place]. PT IS AGREEABLE, STATES THAT HE WILL CALL AFTER HE USES BR THE NEXT TIME. DENIES OTHER NEEDS. CALL LIGHT WITHIN REACH.
[2020-12-01 04:34] VITALS: BP 138/84; PULSE 82; TEMP 97.9
--- NOTE | 2020-12-01 05:45 | NUR ---
LAB HERE FOR LINE DRAW. 10ML OF BLOOD TAKEN FROM BROWN PORT. 10ML OF BLOOD WASTED. FLUSHED WITH 20ML NS.
[2020-12-01 06:37] LABS: MEAN CELL VOLUME 84 fl (80.0-100.0); MEAN CORPUSCULAR HGB CONC 32 g/dl (33.0-37.0); MEAN PLATELET VOLUME 9.2 fl (7.4-10.4); PLATELET COUNT 478 K/mm3 (130-400); RED BLOOD COUNT 2.84 M/mm3 (4.20-5.60); REDCELL DISTRIBUTION WIDTH-CV 15.7 % (11.5-14.5)
[2020-12-01 06:40] LABS: HEMATOCRIT 23.7 % (42.0-52.0); HEMOGLOBIN 7.5 g/dl (13.5-18.0); MEAN CORPUSCULAR HEMOGLOBIN 26 pg (27.0-31.0)
[2020-12-01 06:51] LABS: CALCIUM 7.3 mg/dL (8.4-10.2); CREATININE, serum 0.55 (0.66-1.25); POTASSIUM 3.3 mmol/L (3.4-5.0)
[2020-12-01 07:49] VITALS: BP 113/65; PULSE 100; TEMP 98.3
--- NOTE | 2020-12-01 08:00 | NUR ---
Pt resting in bed during assessment. Discussed plan to continue with activity with sitting up in the chair for meals and walking halls in between. Pt stated that his pain is tolerable. He has been getting up independently in the room, is steady on his feet without the walker. Discussed with pt that he will need to make sure he is staying active when he gets home. Talked about him continueing to use the incentive spirometer as well.
--- NOTE | 2020-12-01 09:08 | NUR ---
Galilea with [facility] states they can accept patient for prison and physical therapy upon discharge. Plan: Home with [facility]
--- NOTE | 2020-12-01 09:14 | NUR ---
SW faxed p/t, o/t notes to Galilea at [facility]. They have accepted patient to [facility]. *D/C home with [facility]
--- NOTE | 2020-12-01 11:35 | NUR ---
Pt had been stating he would get up and walk on his own, but he was not taking any initiative to go or ask. Informed pt that he had to go for a walk before noon. Pt was not happy about this and stated that he moves around in the room, but each time I have been in he has been in bed. Informed him that he should really be sitting up in the chair some as well. Pt is currently up walking in the walls and is steady on his feet.
[2020-12-01 11:57] VITALS: BP 121/63; PULSE 94
[2020-12-01 15:22] VITALS: BP 142/70; PULSE 99; TEMP 98.4
--- NOTE | 2020-12-01 18:10 | NUR ---
PT has done well this afternoon. Encouraged him to go for another walk this evening before bed. Pt has been getting up in his room independently and is steady on his feet.
[2020-12-01 19:43] VITALS: BP 131/62; PULSE 98; TEMP 98
[2020-12-01 23:51] VITALS: BP 131/58; PULSE 103; TEMP 99.1
--- NOTE | 2020-12-01 23:57 | NUR ---
Patient assessed around 194. Alert and oriented x 4, and able to make needs known. Complained of pain to abdomen, given PRN Roxicodone and Motrin as requested for pain. Refused APAP. TLC to left chest. Dressing CDI. HRR. Telemetry in place. Capillary refill less than 3 seconds. Non-tenting skin turgor. BSAx4. Abdomen soft and non-tender. 2+ edema BLE. Stables to midline incision CDI, as well as 5 lab sites. Voices no further questions, needs, or concerns at this time.
[2020-12-02 04:32] VITALS: BP 127/66; PULSE 92; TEMP 97.4
--- NOTE | 2020-12-02 05:51 | NUR ---
Patient has been resting in bed with call light within reach. Did get up and walk in halls this shift. Has received PRN Motrin and Roxicodone as requested for pain. Refused APAP. Continues on IV ABXs per orders. Voices no questions, needs, or concerns at this time.
[2020-12-02 07:56] VITALS: BP 129/53; PULSE 93; TEMP 97.9
--- NOTE | 2020-12-02 08:01 | NUR ---
Pt doing well this morning. He has been up and walked in the halls without being prompted. Pt is excited about hopefully going home. He is steady on his feet. Pt reported not having loose stools anymore. Breakfast has arrived, call light within reach
[2020-12-02] MEDS ORDERED: ROXICODONE 55 MG/TAB PO (08:40)
[2020-12-02] MEDS ORDERED: MOTRIN 600600 MG/TAB PO (08:42)
--- NOTE | 2020-12-02 11:00 | NUR ---
Pt doing well. He is getting up walking in the halls independently with no assisted device. Pt excited about going home. Started discussing discharge instructions with him. Informed him that the line will be removed prior to leaving. Educated that the dressing will have to stay in place until tomorrow, then he could shower.
[2020-12-02 11:23] VITALS: BP 119/60; PULSE 87; TEMP 97.9
--- NOTE | 2020-12-02 12:28 | NUR ---
Left triple lumen centeral line remove per protcal patient supine Sertile dressing change with chloraprep and skin prep applied sutures cut and pulled cover with two by two gauze then held perssure for two minutes cover with a sertile tegaderm. patient held well. return bed to normal postion.
--- NOTE | 2020-12-02 13:15 | NUR ---
Reviewed discharge instructions with pt to include prescriptions and follow up appointment. all questions answered, pt escorted out at this time
--- NOTE | 2020-12-02 14:21 | NUR ---
[facility] contacted and advised that when they contacted patient he refused all services, stating that he only wanted them to clean his house.
[2020-12-19] MEDS ORDERED: ROXICODONE 55 MG/TAB PO (10:52)
[2020-12-19] MEDS ORDERED: AMOXICILLIN 8751 TAB PO (10:53)
[2020-12-27] MEDS ORDERED: CIPRO 500MG TA500 MG PO (08:30)
[2020-12-27] MEDS ORDERED: PERCOCET 325 MG1 TA2 PO (08:31)
[2020-12-27] MEDS ORDERED: ZOFRAN 4MG T4 MG/TAB PO (08:31)
[2021-01-11] MEDS ORDERED: INVANZ INJ1 G/VIAL IV (09:20)
[2021-01-11] MEDS ORDERED: DIFLUCAN 4400 MG/200 IV (09:21)
[2021-01-12] MEDS ORDERED: PERCOCET 325 MG1 TA2 PO (07:57)
[2021-01-17] MEDS ORDERED: ROXICODONE 55 MG/TAB PO (14:03)
[2021-01-27] MEDS ORDERED: ROXICODONE 55 MG/TAB PO (17:05)
[2021-02-08] MEDS ORDERED: ROXICODONE 55 MG/TAB PO (08:42)
== END 2020-12-02 13:40 | disposition home or self-care (01) | DRG 330 ==
LOC: SURG 11-23 07:30 → INPTSU 11-23 07:30 → SURG 11-23 09:30
PROVIDERS: Registered Nurse; Surgery; Urology; ADMIT Surgery
PROC: 0DJD8ZZ Inspection of Lower Intestinal Tract, Via Natural or Artificial Opening Endoscopic (ICD-10-PCS; 2020-11-23)
PROC: 02HV33Z Insertion of Infusion Device into Superior Vena Cava, Percutaneous Approach (ICD-10-PCS; 2020-11-23)
PROC: 8E0W4CZ Robotic Assisted Procedure of Trunk Region, Percutaneous Endoscopic Approach (ICD-10-PCS; 2020-11-23)
PROC: 0DNG4ZZ Release Left Large Intestine, Percutaneous Endoscopic Approach (ICD-10-PCS; principal; 2020-11-23 09:30)
PROC: 0DN84ZZ Release Small Intestine, Percutaneous Endoscopic Approach (ICD-10-PCS; 2020-11-23 09:30)
PROC: 0DTN0ZZ Resection of Sigmoid Colon, Open Approach (ICD-10-PCS; 2020-11-23 09:30)
DX: K57.20 Diverticulitis of large intestine with perforation and abscess without bleeding (principal); Z68.43 Body mass index [BMI] 50.0-59.9, adult; N17.9 Acute kidney failure, unspecified; K56.7 Ileus, unspecified; J90 Pleural effusion, not elsewhere classified; E87.6 Hypokalemia; Z20.822 Contact with and (suspected) exposure to COVID-19; R00.0 Tachycardia, unspecified; D72.829 Elevated white blood cell count, unspecified; E86.1 Hypovolemia; R11.2 Nausea with vomiting, unspecified; E66.01 Morbid (severe) obesity due to excess calories; Z79.2 Long term (current) use of antibiotics; Z53.31 Laparoscopic surgical procedure converted to open procedure
CPT/HCPCS: A4314; A9284; J0330; J0690; J1100; J1170; J1650; J2250; J2405; J2543; J2550; J2704; J2795; J3010; J3480; J7030; J7040; J7120; Q9967

== ENCOUNTER → 2020-12-16 | Outpatient (CLI) | payer BC ==
[~2020-12-16] MED LIST changes: +AMOXICILLIN 8751 TAB PO; +DIFLUCAN 4400 MG/200 IV; +INVANZ INJ1 G/VIAL IV; +MOTRIN 200200 MG/TAB PO; +MOTRIN 600600 MG/TAB PO; +PERCOCET 325 MG1 TA2 PO; +ROXICODONE 55 MG/TAB PO; +TYLENOL 325MG325 MG PO; +ZOFRAN 4MG T4 MG/TAB PO
[2020-12-16 10:19] LABS: MEAN CELL VOLUME 82 fl (80.0-100.0); MEAN CORPUSCULAR HGB CONC 31 g/dl (33.0-37.0); MEAN PLATELET VOLUME 8.4 fl (7.4-10.4); PLATELET COUNT 752 K/mm3 (130-400); RED BLOOD COUNT 3.12 M/mm3 (4.20-5.60)
[2020-12-16 10:22] LABS: HEMATOCRIT 25.6 % (42.0-52.0); HEMOGLOBIN 7.9 g/dl (13.5-18.0); MEAN CORPUSCULAR HEMOGLOBIN 25 pg (27.0-31.0)
[2020-12-16 10:33] LABS: CALCIUM 8.3 mg/dL (8.4-10.2); CREATININE, serum 0.69 mg/dL (0.72-1.25); POTASSIUM 3.5 mmol/L (3.5-4.5)
== END ==
LOC: COL.RAD 09:30
PROVIDERS: Surgery
DX: K65.1 Peritoneal abscess (principal); Z90.49 Acquired absence of other specified parts of digestive tract
CPT/HCPCS: Q9967

== ENCOUNTER → 2020-12-19 | Outpatient (CLI) | payer BC ==
[2020-12-19] VITALS (18 sets, daily range): BP systolic 100–145; BP diastolic 63–97; PULSE 90–101
[~2020-12-19] VITALS: Ht 175.3 cm; Wt 142.3 kg
--- NOTE | 2020-12-19 11:55 | NUR ---
Pt to ct per ambulation. Pt positioned in supine position on monitor. Monitors applied.
--- NOTE | 2020-12-19 12:10 | NUR ---
Dr Siu talks with pt regarding the procedure.
--- NOTE | 2020-12-19 12:51 | NUR ---
Drain in place, specimen obtained by Dr Siu. Brown drainage removed from abscess and placed in specimen cup. Total of [address] Siu. Accordian drain attached to drain tube.
== END ==
LOC: COL.RAD 10:14
DX: K65.1 Peritoneal abscess (principal)
CPT/HCPCS: C1729; J2250; J3010

== ENCOUNTER → 2020-12-22 | Outpatient (CLI) | payer BC ==
[2020-12-22 10:52] LABS: MEAN CELL VOLUME 82 fl (80.0-100.0); MEAN CORPUSCULAR HGB CONC 30 g/dl (33.0-37.0); MEAN PLATELET VOLUME 8.4 fl (7.4-10.4); PLATELET COUNT 794 K/mm3 (130-400); RED BLOOD COUNT 3.36 M/mm3 (4.20-5.60)
[2020-12-22 10:53] LABS: HEMATOCRIT 27.4 % (42.0-52.0); HEMOGLOBIN 8.2 g/dl (13.5-18.0); MEAN CORPUSCULAR HEMOGLOBIN 24 pg (27.0-31.0)
[2020-12-22 11:16] LABS: C-REACTIVE PROTEIN 15.3 mg/dL (0.00-0.50); CALCIUM 8.5 mg/dL (8.4-10.2); CREATININE, serum 0.69 mg/dL (0.72-1.25); POTASSIUM 3.8 mmol/L (3.5-4.5)
== END ==
LOC: COL.LAB 10:02
PROVIDERS: Registered Nurse
DX: K65.1 Peritoneal abscess (principal)

== ENCOUNTER → 2020-12-26 | Outpatient (CLI) | payer BC ==
[2020-12-26 09:53] LABS: MEAN CELL VOLUME 81 fl (80.0-100.0); MEAN CORPUSCULAR HGB CONC 30 g/dl (33.0-37.0); MEAN PLATELET VOLUME 8.5 fl (7.4-10.4); PLATELET COUNT 843 K/mm3 (130-400); RED BLOOD COUNT 3.38 M/mm3 (4.20-5.60)
[2020-12-26 09:54] LABS: CALCIUM 9.1 mg/dL (8.4-10.2); CREATININE, serum 0.74 mg/dL (0.72-1.25); HEMATOCRIT 27.5 % (42.0-52.0); HEMOGLOBIN 8.2 g/dl (13.5-18.0); MEAN CORPUSCULAR HEMOGLOBIN 24 pg (27.0-31.0); POTASSIUM 3.9 mmol/L (3.5-4.5)
== END ==
LOC: COL.RAD 09:10
PROVIDERS: Surgery
DX: K65.1 Peritoneal abscess (principal)
CPT/HCPCS: Q9967

== ENCOUNTER 2020-12-29 08:02 | Inpatient (IN) | payer BC ==
[2020-12-29] VITALS (7 sets, daily range): BP systolic 104–127; BP diastolic 51–78; PULSE 84–102; TEMP 97.5–98.4
[~2020-12-29] VITALS: Ht 175.3 cm; Wt 118.7 kg
[~2020-12-29 08:02] MED LIST changes: -DIFLUCAN 4400 MG/200 IV; -INVANZ INJ1 G/VIAL IV
--- NOTE | 2020-12-29 09:00 | NUR ---
Pt to CT per ambulation. Pt onto table in supine position. Monitors applied and O2 on at 2l/nc.
--- NOTE | 2020-12-29 09:15 | NUR ---
Dr Steen into view images. Dr Steen attempts to reach Dr Byrd. Unable to access abscess to place drain. Pt transported to floor per techs. [id number] Report to Syeda Raphael LPN, care assumed
[2020-12-29 11:25] LABS: BASO # 0.1 K/mm3 (0.0-0.2); BASO % 0.9 % (0.0-2.0); EOS # 0.1 K/mm3 (0.0-0.7); EOS % 0.4 % (0-4.0); GRAN # 7.8 K/mm3 (1.4-6.5); GRAN % 67.1 % (42.2-75.2); LYMPH # 2.4 K/mm3 (1.2-3.4); LYMPH % 20.5 % (20.0-51.0); MEAN CELL VOLUME 81 fl (80.0-100.0); MEAN CORPUSCULAR HGB CONC 30 g/dl (33.0-37.0); MONO # 1.2 K/mm3 (0.1-0.6); MONO % 10.3 % (1.7-9.3); PLATELET COUNT 726 K/mm3 (130-400); RED BLOOD COUNT 3.28 M/mm3 (4.20-5.60); REDCELL DISTRIBUTION WIDTH-CV 16.9 % (11.5-14.5)
[2020-12-29 11:31] LABS: HEMATOCRIT 26.4 % (42.0-52.0); HEMOGLOBIN 7.9 g/dl (13.5-18.0); MEAN CORPUSCULAR HEMOGLOBIN 24 pg (27.0-31.0)
[2020-12-29 11:43] LABS: ALBUMIN 1.7 gm/dL (3.5-5.0); BILIRUBIN,TOTAL 0.2 mg/dL (0.2-1.2); C-REACTIVE PROTEIN 11.8 mg/dL (0.00-0.50); CALCIUM 8.7 mg/dL (8.4-10.2); CREATININE, serum 0.73 mg/dL (0.72-1.25); PHOSPHOROUS 3.9 mg/dL (2.3-4.7); POTASSIUM 3.6 mmol/L (3.5-4.5); TOTAL PROTEIN 8.8 gm/dL (6.2-8.1)
[2020-12-29 12:39] LABS: MAGNESIUM 1.8 mg/dL (1.6-2.6)
--- NOTE | 2020-12-29 18:30 | NUR ---
Patient has been doing well today. CHanged a dressing to his abdomen drain site. The old cause was hard and stuck to his skin. Patient stated the same dressing has been on for about 10 days. The smell was very strong. Did not get to start patients antibiotics when he go to the floor because his IV would not flush, had to wait for the PICC line to be placed. Patient has been independent in the room. TPN started as ordered this afternoon. Patient has been voiding without issues. On admission patient stated he lost about 45 pounds since last admission. Oriented patient to room. Patient is aware he is having another procedure tomorrow for his drain. He is aware he is NPO after midnight. No other changes at this time. Call light within reach. Dr Douglas notified of consult.
[2020-12-30] VITALS (16 sets, daily range): BP systolic 102–1113; BP diastolic 49–65; PULSE 71–92; TEMP 97.5–98.4
--- NOTE | 2020-12-30 03:48 | NUR ---
ALERT AND OX4. DENIES SOA, CHEST PAIN OR DIZZY. MINIMAL ABD PAIN. DSG TO LOWER ABD FOUL SMELL BUT C/D/I. TPN GOING ORDER TO RT UPPER ARM PICC. ANTIBOTICS HUNG PER ORDER. POC DISCUSSED. NPO FOR PROCEDURE IN AM. CALL LIGHT WI REACH.
[2020-12-30 07:01] LABS: CALCIUM 8.1 mg/dL (8.4-10.2); CREATININE, serum 0.6 mg/dL (0.72-1.25); MAGNESIUM 2.1 mg/dL (1.6-2.6); PHOSPHOROUS 3.7 mg/dL (2.3-4.7); POTASSIUM 3.9 mmol/L (3.5-4.5)
--- NOTE | 2020-12-30 09:00 | NUR ---
Pt to ct per wheelchair. Pt placed in supine position on ct table. Monitors applied and O2 on at 2l/nc.
--- NOTE | 2020-12-30 09:50 | NUR ---
left upper abdomen drain in place per Dr Steen.
--- NOTE | 2020-12-30 15:24 | NUR ---
KAROLYN met with the patient to discuss discharge plan and re-admit. The patient recently discharged from the hospital, 12/02, and returned home with [facility]. The patient reports that things at home were going well, but at his second postoperative visit, he was having some chills and decreased appetite. The surgeon recommended hospital admission. The patient reports that he did not go through with home health, because he thought it was just for housekeeping. He reports that is was only interested in housekeeping while he was recovering. He reports that he has not seen his provider since before surgery. 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 He reports independence with ADLs and does not have any DME. The patient's primary care provider is Eula Hinojosa APRN at [facility] in [facility] and he receives his medications from [facility]. He reports no difficulties obtaining his meds. The patient does not have a DPOA-HC and he was not interested in completing one at this time. He reports that he is not , does not have any children, and that his parents are not alive. He reports that he has two brothers: James and Osmain. They live in [facility] [place]. The patient has his cousin, Marie Salgado (ph#[phone]), as his emergency contact. She also likes in [place]. The patient plans to return home upon discharge. No additional needs at this time. He reports that he is not interested in any home health. KAROLYN informed him how housekeeping would be a private pay service. The patien verbalized understanding. *Discharge plan: home*
--- NOTE | 2020-12-30 19:00 | NUR ---
Patient did well today. He is having increased pain to abdomen drain sites. Spoke with Dr Byrd to increase pain medications. Patient denies nausea. He has drainage in his drains but not enough to empty and measure. He has been independent in the room. He had 2 bowel movemnts, the first one was more formed but the second was loose he stated. No other changes at this time. Call light within reach.
--- NOTE | 2020-12-30 20:00 | NUR ---
PATIENT IS ALERT AND ORIENTED X4. SITTING UP IN BED. PATIENT HAS 2 DRAINS IN THE ABDOMENT TO WOUND DRAIN BAGS. ONE IS UPPER APDOMEN FOR ABCESS DRAINAGE AND IS BRIGHT RED OUTPUT. OTHER IS LOWER ABDOMEN FOR COLECTOMY WITH BROWN DRAINAGE. PATIENT HAS TPN GOING. RIGHT UPPER PICC LINE. PATIENT IS INDEPENDENT IN ROOM. PATIENT REFUSED LOVENOX INJECTION. IT WAS EXPLAINED THAT THIS PREVENTS BLOOD CLOTS IN THE HOSPITAL. PATIENT ON CLEAR DIET. PATIENT HAS Q6 ACCUCHECK. PATIENT GIVEN PAIN MEDS PER ORDERS. NO FURTHER NEEDS AT THIS TIME. CALL LIGHT WITHIN REACH. HEAD TO TOE ASSESSMENT COMPLETE.
[2020-12-31 00:04] VITALS: BP 113/53; PULSE 67; TEMP 97.4
[2020-12-31 04:03] VITALS: BP 106/63; PULSE 72; TEMP 97.3
--- NOTE | 2020-12-31 06:19 | NUR ---
PATIENT DID WELL THROUGHOUT NIGHT. SLEPT MOST OF NIGHT. PAIN MEDS GIVEN PER ORDERS. NO FURTHER NEEDS AT THIS TIME. CALL LIGHT WITHIN REACH. WILL REPORT TO DAYSHIFT.
[2020-12-31 07:48] LABS: CALCIUM 8.1 mg/dL (8.4-10.2); CREATININE, serum 0.57 mg/dL (0.72-1.25); MAGNESIUM 2.3 mg/dL (1.6-2.6); PHOSPHOROUS 4.1 mg/dL (2.3-4.7); POTASSIUM 4.3 mmol/L (3.5-4.5)
[2020-12-31 08:15] VITALS: BP 93/33; PULSE 97; TEMP 97.2
[2020-12-31 12:15] VITALS: BP 96/50; PULSE 75; TEMP 98.1
--- NOTE | 2020-12-31 14:07 | NUR ---
Contacted Dr. Byrd about low BP. No new orders at this time.
[2020-12-31 17:00] VITALS: BP 110/58; PULSE 89; TEMP 98.4
--- NOTE | 2020-12-31 17:01 | NUR ---
Patient up ambulating in the halls independently. Denies needs at this time.
--- NOTE | 2020-12-31 19:09 | NUR ---
Patient doing well throughout the day, has been up independently in room. Abcess drains with minimal output; drain to RLQ with brown output and LLQ with serosanginous drainage present. Pain medications given per orders. Patient denies needs at this time. TPN infusing per orders. No further needs at this time. Will report off to home worker.
[2020-12-31 19:35] VITALS: BP 98/50; PULSE 77; TEMP 98.4
--- NOTE | 2020-12-31 20:00 | NUR ---
PATIENT IS ALERT AND ORIENTED X4. SITTING UP IN BED.PATIENT HAS 2 DRAINS TO COMPRESSION ON ABDOMEN. LOWER ONE BRIGHT RED OUTPUT AND IS ABCESS DRAIN. LOWER ONE HAS BROWN OUTPUT FROM COLECTOMY. PATIENT HAS pICC LINE TO RIGHT UPPER ARM. FLUSHES WELL AND HAS TPN RUNNING. PATIENT IS ON CLEAR LIQUID DIET AND HAS Q6 ACCUCHECKS. PATIENT DENIES PAIN OR FURTHER NEEDS AT THIS TIME. CALL LIGHT WITHIN REACH. HEAD TO TOE ASSESSMENT COMPLETE.
[2021-01-01] VITALS: BP 110/56; PULSE 88; TEMP 98.4
--- NOTE | 2021-01-01 00:30 | NUR ---
PATIENT ASKING FOR ZOFRAN AND DILAUDID. NOT GIVEN BECAUSE BLOOD PRESSURE WAS 90S OVER 50S. PATIENT WAS TOLD HE HAD PERCOCET AVAILIABLE PER ORDERS BUT REFUSED IT.
[2021-01-01 03:40] VITALS: BP 107/66; PULSE 93; TEMP 97.6
[2021-01-01 06:35] LABS: MEAN CELL VOLUME 81 fl (80.0-100.0); MEAN CORPUSCULAR HGB CONC 30 g/dl (33.0-37.0); MEAN PLATELET VOLUME 8.9 fl (7.4-10.4); PLATELET COUNT 780 K/mm3 (130-400); RED BLOOD COUNT 3.06 M/mm3 (4.20-5.60); REDCELL DISTRIBUTION WIDTH-CV 17.5 % (11.5-14.5)
--- NOTE | 2021-01-01 06:35 | NUR ---
PATIENT DID WELL THROUGHOUT NIGHT. SLEPT OFF AND ON. GIVEN PAIN MEDS PER ORDERS. MOT GIVEN DILAUDID DUE TO LOW BLOOD PRESSURES. NO FURTHER NEEDS AT THIS TIME. WILL REPORT TO DAYSHIFT
[2021-01-01 06:41] LABS: HEMATOCRIT 24.9 % (42.0-52.0); HEMOGLOBIN 7.4 g/dl (13.5-18.0); MEAN CORPUSCULAR HEMOGLOBIN 24 pg (27.0-31.0)
[2021-01-01 07:05] LABS: CALCIUM 8.3 mg/dL (8.4-10.2); CREATININE, serum 0.57 mg/dL (0.72-1.25); MAGNESIUM 2.1 mg/dL (1.6-2.6); PHOSPHOROUS 4.4 mg/dL (2.3-4.7); POTASSIUM 4.3 mmol/L (3.5-4.5)
[2021-01-01 08:00] VITALS: BP 124/69; PULSE 92; TEMP 97.8
--- NOTE | 2021-01-01 10:49 | NUR ---
Pt doing ok this morning. He has slept in some as he stated that he did not get much sleep last night. Pt is refusing the lovenox, reports that he understands the importance, but does not want it. Encouraged him to stay active as much as possible and he stated that he knew that and does. Bilateral drains are intact. Pt reports that he is taking in some fluids. Pain is currently 5/10, but states that he would like it to be 2/10 to be adequately functional, but also is refusing pain medication at this time. Call light within reach
[2021-01-01 12:00] VITALS: BP 113/52; PULSE 82; TEMP 97.5
--- NOTE | 2021-01-01 12:22 | NUR ---
Discussed the importance of activity and stated that he should really be up walking in the halls at least every couple of hours. Pt stated that he would walk when he feels like it, but does not feel like it now. When anything about his care or what is importance is dicussed, he gets an annoyed look on his face and clearly has no interest in hearing what is said. Pt verbalized no needs, call light within reach
[2021-01-01 16:05] VITALS: BP 113/52; PULSE 93; TEMP 97.6
--- NOTE | 2021-01-01 18:00 | NUR ---
Pt has gone for a couple walks in the halls this afternoon. PRN pain medication given mid afternoon and pt reported that it did help. Minimal output from drains. Pt tolerating clear liquids. No other needs
[2021-01-01 20:00] VITALS: BP 112/58; PULSE 86; TEMP 98.1
[2021-01-02 00:34] VITALS: BP 124/54; PULSE 91; TEMP 97.5
--- NOTE | 2021-01-02 08:15 | NUR ---
Patient in bed resting. Alert and oriented x 3. Assessment complete. Patient has 2x drains, RLQ with brown drainage present; LLQ with serosangunous drainage. Patient denies pain at this time. Denies further needs at this time.
[2021-01-02 08:17] VITALS: BP 104/51; PULSE 84; TEMP 98.2
[2021-01-02 08:58] LABS: CALCIUM 8.6 mg/dL (8.4-10.2); CREATININE, serum 0.57 mg/dL (0.72-1.25); MAGNESIUM 2.1 mg/dL (1.6-2.6); PHOSPHOROUS 3.8 mg/dL (2.3-4.7); POTASSIUM 4.1 mmol/L (3.5-4.5)
[2021-01-02 12:10] VITALS: BP 112/58; PULSE 83; TEMP 97.6
[2021-01-02 15:32] VITALS: BP 120/66; PULSE 85; TEMP 97.8
--- NOTE | 2021-01-02 19:05 | NUR ---
Patient doing well throughout the day. Nausea this afternoon after attempting jello, refused zofran at that time. TPN and fluids infusing per orders to LONA PICC line. Patient denies pain at this time. Will report off to [facility] shift lead.
[2021-01-02 19:28] VITALS: BP 114/65; PULSE 88; TEMP 98.1
[2021-01-02 23:43] VITALS: BP 103/52; PULSE 85; TEMP 98
[2021-01-03] VITALS (7 sets, daily range): BP systolic 98–185; BP diastolic 44–68; PULSE 70–93; TEMP 97.5–98.3
[2021-01-03 06:47] LABS: MEAN CELL VOLUME 81 fl (80.0-100.0); MEAN CORPUSCULAR HGB CONC 30 g/dl (33.0-37.0); MEAN PLATELET VOLUME 8.8 fl (7.4-10.4); PLATELET COUNT 755 K/mm3 (130-400); RED BLOOD COUNT 3.05 M/mm3 (4.20-5.60); REDCELL DISTRIBUTION WIDTH-CV 18.5 % (11.5-14.5)
[2021-01-03 06:50] LABS: HEMATOCRIT 24.7 % (42.0-52.0); HEMOGLOBIN 7.5 g/dl (13.5-18.0); MEAN CORPUSCULAR HEMOGLOBIN 25 pg (27.0-31.0)
[2021-01-03 08:32] LABS: ANISOCYTOSIS 1+; BAND 4 % (0-10); EOSINOPHIL 4 % (0-4); HYPOCHROMIA 2+; LYMPHOCYTE 26 % (20.0-51.0); NEUTROPHILS 58 % (42.0-75.2); PLATELET ESTIMATE INCREASED (NORMAL)
--- NOTE | 2021-01-03 12:03 | NUR ---
1145- Pt. returned per cart to Rm 345 post MRI and sleepy but continues to try to pull at coel cath. Awake briefly and back to sleep. 1200-Pt. says he is too tired to eat. Apnea q1-2 mins [id number].
--- NOTE | 2021-01-03 12:07 | NUR ---
1210-urine light pederson to clearing yellow.
--- NOTE | 2021-01-03 13:28 | NUR ---
Contacted Dr. Byrd, patient would like accuechecks changed. Per Dr. muñoz to do accuchecks once daily
--- NOTE | 2021-01-03 19:06 | NUR ---
Patient doing well throughout the day. Able to tolerate soup this afternoon without nausea. Patient denies pain throughout the day. TPN and antibiotics infusing per orders. Patient denies needs at this time. Will report off to date night caregiver.
--- NOTE | 2021-01-03 19:45 | NUR ---
PATIENT IS ALERT AND ORIENTED X3. SITTING UP IN BED WATCHING TV. PATIENT RATING PAIN AT 6 ON 0-10 SCALE. PAIN MEDS GIVEN PER ORDERS. PATIENT HAS 2 ACCORDIAN DRAINS TO ABDOMEN. ONE DRAINING REDDISH AND THE OTHER DRAINING BROWN. PATIENT HAS PICC TO RIGHT UPPER ARM, FLUSHING WELL. PATIENT DENIES ANY NAUSEA OR VOMITING TODAY. TPN INFUSING. PATIENT ON MECHANICAL SOFT DIET. PATIENT GIVEN NEW ICE WATER. PATIENT DENIES FURTHER NEEDS AT THIS TIME. CALL LIGHT WITHIN REACH. HEAD TO TOE ASSESSMENT COMPLETE.
--- NOTE | 2021-01-03 20:54 | NUR ---
PATIENT HAS ABCESS DRAINING TO BACKSIDE. COVERED WITH GAUZE AND TAPE. PATIENT SAYS THIS IS NORMAL FOR HIM
[2021-01-04 03:16] VITALS: BP 105/52; PULSE 78; TEMP 98
[2021-01-04 06:50] LABS: BASO # 0.1 K/mm3 (0.0-0.2); EOS # 0.2 K/mm3 (0.0-0.7); EOS % 1.4 % (0-4.0); GRAN # 7.6 K/mm3 (1.4-6.5); GRAN % 61.2 % (42.2-75.2); LYMPH # 3.4 K/mm3 (1.2-3.4); LYMPH % 27.4 % (20.0-51.0); MEAN CELL VOLUME 81 fl (80.0-100.0); MEAN CORPUSCULAR HGB CONC 30 g/dl (33.0-37.0); MEAN PLATELET VOLUME 8.9 fl (7.4-10.4); MONO # 1.1 K/mm3 (0.1-0.6); MONO % 8.7 % (1.7-9.3); PLATELET COUNT 792 K/mm3 (130-400); RED BLOOD COUNT 3.42 M/mm3 (4.20-5.60)
[2021-01-04 06:54] LABS: HEMATOCRIT 27.8 % (42.0-52.0); HEMOGLOBIN 8.3 g/dl (13.5-18.0); MEAN CORPUSCULAR HEMOGLOBIN 24 pg (27.0-31.0)
[2021-01-04 07:20] LABS: ALBUMIN 1.9 gm/dL (3.5-5.0); BILIRUBIN,TOTAL 0.2 mg/dL (0.2-1.2); CREATININE, serum 0.63 mg/dL (0.72-1.25); PHOSPHOROUS 4.2 mg/dL (2.3-4.7); POTASSIUM 4.1 mmol/L (3.5-4.5); TOTAL PROTEIN 8.8 gm/dL (6.2-8.1)
[2021-01-04 08:13] VITALS: BP 117/61; PULSE 82; TEMP 97.9
[2021-01-04 09:41] LABS: 12 HR URINE TOTAL VOLUME 1.13 L
--- NOTE | 2021-01-04 09:45 | NUR ---
Patient resting in bed. I discussed importance of activity with patient, he reports moving around in the room independently. I encouraged ambulation in the hallways. Patient also refused Lovenox-I discussed importance of this. Still refusing. Picc to Rue-Tpn per order. Sales Force Developer reviewed plan of care with patient. Patient did not eat breakfast, he was upset about not being able to have sausauge biscut, reports that is all he wanted. Accordian abcess drains x2, RLQ purulent drainge. LUQ reddish draiange. Patient reports pain as manges 3/10 from perococet. Will monitor.
--- NOTE | 2021-01-04 11:07 | NUR ---
Patient up in room, lunch ordered. Right buttocks drainge noted, patient reports this is his chronic HS. Not new for him
[2021-01-04 11:37] VITALS: BP 107/56; PULSE 99; TEMP 98.1
--- NOTE | 2021-01-04 14:36 | NUR ---
Patient resting in bed. He did well with lunch and now taking a nap. Denies needs. Will monitor.
[2021-01-04 16:41] VITALS: BP 105/52; PULSE 89; TEMP 98.3
--- NOTE | 2021-01-04 18:17 | NUR ---
Patient resting in bed, in positive spirits. Going to attempt to work on school work tonight. He reports feeling better than he has in days. Will report off to nightnurse
--- NOTE | 2021-01-04 19:03 | NUR ---
Jacob denies needs at this time. Bedside report to Beverly HERNANDEZ
[2021-01-04 19:20] VITALS: BP 106/57; PULSE 87; TEMP 98.2
--- NOTE | 2021-01-04 20:45 | NUR ---
Patient assessed around 1919. Denied pain and discomfort. PICC to RUE. TPN running per orders. Accordian drains to RLQ with purulent drainage, and LUQ with serous drainage. Managing drains independently. Patient continues on IV ABX per orders. Voices no questions, needs, or concerns at this time. Resting in bed with call light within reach.
[2021-01-05 00:30] VITALS: BP 114/57; PULSE 86; TEMP 97.7
[2021-01-05 04:19] VITALS: BP 107/56; PULSE 99; TEMP 98.3
--- NOTE | 2021-01-05 04:55 | NUR ---
Patient received PRN Percocet once this shift for pain to abdomen. Patient reports no drainage emptied from either accordian draings to abdomen. Continues on TPN per orders. Did have small amount of emesis during the night. Reports that he believes pain medication had made him nauseous. Denies needing anything for nausea at this time. Resting in bed with call light within reach. Voices no questions, needs, or concerns at this time.
[2021-01-05 07:30] VITALS: BP 100/53; PULSE 80; TEMP 98
--- NOTE | 2021-01-05 10:15 | NUR ---
Patient resting in bed. Minimal appetite today. Drain remains to compression.
[2021-01-05 12:11] VITALS: BP 118/65; PULSE 108; TEMP 98.4
--- NOTE | 2021-01-05 12:35 | NUR ---
Patient resting in bed. Not feeling as well today as prior day. He has not wanted pain medication. He has been slightly nauseated. Will let him rest.
--- NOTE | 2021-01-05 14:55 | NUR ---
Patient resting soundly at this time.
[2021-01-05 15:55] VITALS: BP 100/49; PULSE 94; TEMP 98.6
--- NOTE | 2021-01-05 18:10 | NUR ---
rounded & plan of care reviewed. Patient feeling much better this evening after zofran & a pain pill. Encouraged activity. Will report off to nightnurse
[2021-01-05 19:52] VITALS: BP 115/54; PULSE 87; TEMP 98.1
--- NOTE | 2021-01-05 20:10 | NUR ---
PT RESTING IN BED. NO PAIN OR NAUSEA AT THIS TIME. TPN TO PICC INFUSING AT 85CC/HR. CALL LIGHT IN REACH.
[2021-01-06] VITALS (7 sets, daily range): BP systolic 97–113; BP diastolic 46–56; PULSE 73–94; TEMP 97.8–98.6
[2021-01-06 07:14] LABS: CALCIUM 8.6 mg/dL (8.4-10.2); CREATININE, serum 0.59 mg/dL (0.72-1.25); PHOSPHOROUS 3.8 mg/dL (2.3-4.7); POTASSIUM 3.7 mmol/L (3.5-4.5)
--- NOTE | 2021-01-06 22:06 | NUR ---
PT IN BED. HAS TPN INFUSING TO RT PICC WITHOUT PROBLEM. HAS ACCORDIAN DRAIN TO LEFT UPPER ABD AND RT LOWER ABD. LEFT WITH SCANT SANGUINOUS DRAINAGE, RT WITH SCANT PURULENT DRAINAGE. LAP SITES HEALED. REFUSING LOVENOX INJ FOR DVT. TAKES ZOFRAN 4MG IVP WITH PERCOCET 1 TAB. NARCOTIC MAKES HIM NAUSEOUS. INDEPENDENT IN ROOM AND HALLWAY.
[2021-01-07 04:44] VITALS: BP 105/56; PULSE 76; TEMP 97.6
[2021-01-07 09:00] VITALS: BP 107/49; PULSE 84; TEMP 98.1
[2021-01-07 12:31] VITALS: BP 94/44; PULSE 79; TEMP 98.4
--- NOTE | 2021-01-07 14:09 | NUR ---
Patient resting in bed. encouraged activity. He continues to refuse lovenox. He tolerated lunch. Pain pill & zofran per request. He is managing his drains independently. Will monitor.
[2021-01-07 15:19] VITALS: BP 100/55; PULSE 89; TEMP 98.2
--- NOTE | 2021-01-07 16:11 | NUR ---
Patient resting in bed. Pain improved after Percocet. Tpn started per orders at cyclic rate, verified with Wood HERNANDEZ.
--- NOTE | 2021-01-07 17:58 | NUR ---
Patient sitting up in chair. working on dinner tray. ice chips provdied. Denies needs at this time
[2021-01-07 19:38] VITALS: BP 97/47; PULSE 82; TEMP 97.9
--- NOTE | 2021-01-07 21:20 | NUR ---
PT IN BED, DOING HOMEWORK ON COMPUTER. REFUSES LOVENOX AGAIN TONIGHT AND REPORTS HE IS FULLY AWARE OF POTENTIAL FOR BLOOD CLOTS. HAS PICC TO RT UPPER ARM, TPN INFUSING WITHOUT PROBLEM. REPORTS LLQ PAIN, WILL WANT PAIN MEDS AT 2300. DRAINS TO LUQ AND RLQ COMPRESSED.
[2021-01-07 23:03] VITALS: BP 109/59; PULSE 87; TEMP 97.9
--- NOTE | 2021-01-07 23:07 | NUR ---
PERCOCET 1 TAB PO AND ZOFRAN 4MG IVP GIVEN AT THIS TIME.
[2021-01-08 04:54] VITALS: BP 100/54; PULSE 89; TEMP 98
[2021-01-08 10:19] VITALS: BP 111/67; PULSE 94; TEMP 98
[2021-01-08 16:00] VITALS: BP 105/53; PULSE 79; TEMP 98.2
[2021-01-08 19:12] VITALS: BP 95/46; PULSE 86; TEMP 97.9
--- NOTE | 2021-01-08 21:58 | NUR ---
PT ASKING FOR PERCOCET AND ZOFRAN, GIVEN AT THIS TIME. IS ALERT AND ORIENTED X4. HAS RT PICC WITH TPN INFUSING. RLQ AND LUQ ACCORDIAN DRAINS COMPRESSED. UP AD ANA MARIA IN ROOM. EATING ALL OF MEAL TRAYS.
[2021-01-08 23:08] VITALS: BP 96/57; PULSE 94; TEMP 98.5
--- NOTE | 2021-01-09 02:00 | NUR ---
JUDY GIVEN FOR SLEEP.
[2021-01-09 05:13] VITALS: BP 90/40; PULSE 79; TEMP 98.2
[2021-01-09 06:45] LABS: MEAN CELL VOLUME 85 fl (80.0-100.0); MEAN CORPUSCULAR HGB CONC 29 g/dl (33.0-37.0); MEAN PLATELET VOLUME 10.4 fl (7.4-10.4); PLATELET COUNT 252 K/mm3 (130-400); RED BLOOD COUNT 3.08 M/mm3 (4.20-5.60); REDCELL DISTRIBUTION WIDTH-CV 20.7 % (11.5-14.5)
[2021-01-09 06:50] LABS: HEMATOCRIT 26.3 % (42.0-52.0); HEMOGLOBIN 7.6 g/dl (13.5-18.0); MEAN CORPUSCULAR HEMOGLOBIN 25 pg (27.0-31.0)
[2021-01-09 07:09] LABS: C-REACTIVE PROTEIN 5.25 mg/dL (0.00-0.50); CALCIUM 9.1 mg/dL (8.4-10.2); CREATININE, serum 0.64 mg/dL (0.72-1.25); MAGNESIUM 2.2 mg/dL (1.6-2.6); PHOSPHOROUS 4.6 mg/dL (2.3-4.7); POTASSIUM 4.2 mmol/L (3.5-4.5)
[2021-01-09 07:48] VITALS: BP 111/58; PULSE 89; TEMP 97.9
[2021-01-09 10:08] LABS: BASOPHIL 6 % (0-2); EOSINOPHIL 5 % (0-4); LYMPHOCYTE 26 % (20.0-51.0); NEUTROPHILS 60 % (42.0-75.2)
[2021-01-09 10:11] LABS: PLATELET ESTIMATE NORMAL (NORMAL)
[2021-01-09 10:12] LABS: ANISOCYTOSIS 2+; HYPOCHROMIA 3+
--- NOTE | 2021-01-09 10:45 | NUR ---
Patient request percocet & zofran for pain, medication per orders. He did well with breakfast.
--- NOTE | 2021-01-09 11:10 | NUR ---
rounded. Plan of care reviewed
[2021-01-09 11:22] VITALS: BP 110/51; PULSE 91; TEMP 97.8
--- NOTE | 2021-01-09 15:02 | NUR ---
Spoke with social science analyst Kana about setting up outpatient antibioitcs.
[2021-01-09 15:31] VITALS: BP 121/89; PULSE 92; TEMP 98
--- NOTE | 2021-01-09 16:16 | NUR ---
KAROLYN was informed by RN that when patient is discharged home with IV antibiotics he will be using [facility]. KAROLYN faxed paperwork to [facility] and spoke with Sveta regarding patient's insurance authorization and it is in progress.
--- NOTE | 2021-01-09 17:54 | NUR ---
Patient denies needs at this time visiting on the phone. he is in positive spirits.
[2021-01-09 19:34] VITALS: BP 97/68; PULSE 88; TEMP 97.9
--- NOTE | 2021-01-09 20:45 | NUR ---
Patient assessed around 1999. Alert and oriented x 4, and able to make needs known. Complained of level 5 pain to abdomen. Given PRN Percocet at requested. Patient also given PRN Zofran for nausea as requested for nausea. Accordian drain to right lower quadrant of abdomen is intact, draining purulent drainage via compression. Denies having any questions, needs, or concerns at this time. Resting in bed with call light within reach.
[2021-01-09 23:10] VITALS: BP 102/43; PULSE 92; TEMP 98
[2021-01-10 03:36] VITALS: BP 101/51; PULSE 76; TEMP 98.2
--- NOTE | 2021-01-10 05:49 | NUR ---
Patient has denied having pain and discomfort when asked, and has voiced no complaints of pain or discomfort since beginning of shift. Has voiced no questions, needs, or concerns this shift. Resting in bed with call light within reach.
--- NOTE | 2021-01-10 07:06 | NUR ---
Pt. progressing w/ plan of care. Report received from DAVID Paul. Pt. awake in bed. Pt. denies needs at this time. Call light and belongings in reach.
[2021-01-10 08:03] VITALS: BP 106/54; PULSE 82; TEMP 97.9
[2021-01-10] MEDS ORDERED: ROXICODONE 55 MG/TAB PO (08:30)
[2021-01-10] MEDS ORDERED: ZOFRAN 4MG T4 MG/TAB PO (08:31)
--- NOTE | 2021-01-10 10:01 | NUR ---
KAROLYN faxed discharge orders to [facility] for patient's IV antibiotics.
[2021-01-10 11:45] VITALS: BP 111/50; PULSE 65; TEMP 98.3
--- NOTE | 2021-01-10 14:44 | NUR ---
Call made to [facility] to check if prior auth is needed for outpatient IV antibiotics. Per [facility] rep, Felicita: Invanz ([id number]), no auth required Fluconazole ([id number]), no auth required
[2021-01-10 16:04] VITALS: BP 103/61; PULSE 79; TEMP 97.7
--- NOTE | 2021-01-10 16:40 | NUR ---
The pt. was discharged home. Pt. left floor via foot w/ hospital staff member, Lashawn. Pt.'s PICC remains in place for outpatient antibiotics. The pt. is agreeable w/ the plan of care, which entails following up w/ general surgery, following up w/ infectious disease, and coming to [facility] express unit for the next two weeks for outpatient antibiotics.
[2021-01-11] MEDS ORDERED: INVANZ INJ1 G/VIAL IV (09:20)
[2021-01-11] MEDS ORDERED: DIFLUCAN 4400 MG/200 IV (09:21)
[2021-01-12] MEDS ORDERED: PERCOCET 325 MG1 TA2 PO (07:57)
[2021-01-17] MEDS ORDERED: ROXICODONE 55 MG/TAB PO (14:03)
[2021-01-27] MEDS ORDERED: ROXICODONE 55 MG/TAB PO (17:05)
[2021-02-08] MEDS ORDERED: ROXICODONE 55 MG/TAB PO (08:42)
== END 2021-01-10 16:45 | disposition home or self-care (01) | DRG 393 ==
LOC: SURG 08:02 → COL.RAD 08:02 → SURG 09:56 → COL.RAD 16:11 → SURG 16:12
PROVIDERS: ADMIT Surgery
PROC: 02HV33Z Insertion of Infusion Device into Superior Vena Cava, Percutaneous Approach (ICD-10-PCS; principal; 2020-12-29)
DX: K63.2 Fistula of intestine (principal); K65.1 Peritoneal abscess; E43 Unspecified severe protein-calorie malnutrition; Z68.41 Body mass index [BMI] 40.0-44.9, adult; L02.32 Furuncle of buttock; E66.01 Morbid (severe) obesity due to excess calories; D72.829 Elevated white blood cell count, unspecified
CPT/HCPCS: C1729; C1751; C1769; C1892; C9113; J0610; J0696; J0744; J1335; J1450; J1650; J2250; J2405; J3010; J3411; J3475; J3480; J7131

== ENCOUNTER → 2021-01-12 | Outpatient (CLI) | payer BC ==
[~2021-01-12] MED LIST changes: +DIFLUCAN 4400 MG/200 IV; +INVANZ INJ1 G/VIAL IV
== END ==
LOC: COL.VAS 07:28
DX: I82.811 Embolism and thrombosis of superficial veins of right lower extremity (principal)

== ENCOUNTER → 2021-01-16 | Outpatient (CLI) | payer BC | LOC: COL.RAD 08:18 | DX: K65.1 Peritoneal abscess (principal); K57.30 Diverticulosis of large intestine without perforation or abscess without bleeding; Z90.49 Acquired absence of other specified parts of digestive tract; Z97.8 Presence of other specified devices ==

== ENCOUNTER → 2021-01-25 | Outpatient (CLI) | payer BC | LOC: COL.RAD 07:53 | DX: K65.1 Peritoneal abscess (principal) ==

== ENCOUNTER 2021-02-17 07:30 | Outpatient (RCR) | payer BC ==
[2021-01-11 08:17] VITALS: BP 102/67; PULSE 98; TEMP 97.8
[2021-01-12 08:00] VITALS: BP 135/65; PULSE 106; TEMP 98.5
--- NOTE | 2021-01-12 10:32 | NUR ---
Fran RN at Dr Byrd's office was contacted prior to dressing change due to amount of drainage around site, foul smell of drainage, and because clamp holding drain is partially detatched due to amount of drainage. She states that amount and smell of drainage is known. She states that clamp can be removed if needed. and drain secured with tape or tegaderm. Pt has follow up with their office Saturday, and sees wound care clinic .
--- NOTE | 2021-01-12 10:56 | NUR ---
Soiled segment of device stablilization clip that is no longer sticking to skin removed. Microfoam tape used to further stablilize drain tubing. Gauze sponge x2 applied. Area covered with large tegaderm for further stablilization. Stitch at insertion site intented to secure drain is no longer intact. Pt is aware of this, and will exercise additional caution to avoid pulling at drain. He exits dept to go to radiology for ordered vascular study.
[2021-01-13 08:00] VITALS: BP 104/68; PULSE 98; TEMP 99.2
[2021-01-15 08:10] VITALS: BP 109/75; PULSE 95; TEMP 97.9
[2021-01-16 07:57] VITALS: BP 112/77; PULSE 102; TEMP 96.7
[2021-01-16 08:12] LABS: BASO # 0.1 K/mm3 (0.0-0.2); BASO % 1.5 % (0.0-2.0); EOS # 0.4 K/mm3 (0.0-0.7); EOS % 4.9 % (0-4.0); GRAN # 4.3 K/mm3 (1.4-6.5); GRAN % 55.1 % (42.2-75.2); LYMPH # 2.4 K/mm3 (1.2-3.4); LYMPH % 30.9 % (20.0-51.0); MEAN CELL VOLUME 84 fl (80.0-100.0); MEAN CORPUSCULAR HGB CONC 30 g/dl (33.0-37.0); MONO # 0.6 K/mm3 (0.1-0.6); MONO % 7.3 % (1.7-9.3); PLATELET COUNT 548 K/mm3 (130-400); RED BLOOD COUNT 3.57 M/mm3 (4.20-5.60); REDCELL DISTRIBUTION WIDTH-CV 19.1 % (11.5-14.5)
[2021-01-16 08:15] LABS: HEMATOCRIT 29.8 % (42.0-52.0); HEMOGLOBIN 8.8 g/dl (13.5-18.0); MEAN CORPUSCULAR HEMOGLOBIN 25 pg (27.0-31.0)
[2021-01-16 08:28] LABS: ALBUMIN 2.4 gm/dL (3.5-5.0); BILIRUBIN,TOTAL 0.2 mg/dL (0.2-1.2); C-REACTIVE PROTEIN 6.15 mg/dL (0.00-0.50); CALCIUM 9.4 mg/dL (8.4-10.2); CREATININE, serum 0.65 mg/dL (0.72-1.25); POTASSIUM 3.6 mmol/L (3.5-4.5); TOTAL PROTEIN 9.1 gm/dL (6.2-8.1)
[2021-01-16 09:24] LABS: ERYTHROCYTE SEDIMENTATION RATE > 140 mm/hr (0-15)
[2021-01-17 08:19] VITALS: BP 103/66; PULSE 86; TEMP 97.6
[2021-01-18 09:26] VITALS: BP 103/69; PULSE 94; TEMP 97.9
[2021-01-19 07:50] VITALS: BP 105/62; PULSE 92; TEMP 97.3
[2021-01-20 08:00] VITALS: BP 113/67; PULSE 101; TEMP 97.6
[2021-01-21 08:48] VITALS: BP 104/77; PULSE 86; TEMP 98
[2021-01-22 07:44] VITALS: BP 104/70; PULSE 90; TEMP 98.3
[2021-01-23 08:09] LABS: BASO # 0.1 K/mm3 (0.0-0.2); BASO % 1.3 % (0.0-2.0); EOS # 0.3 K/mm3 (0.0-0.7); EOS % 4.4 % (0-4.0); GRAN % 59.1 % (42.2-75.2); LYMPH # 1.9 K/mm3 (1.2-3.4); LYMPH % 28.1 % (20.0-51.0); MEAN CELL VOLUME 84 fl (80.0-100.0); MEAN CORPUSCULAR HGB CONC 29 g/dl (33.0-37.0); MONO # 0.5 K/mm3 (0.1-0.6); PLATELET COUNT 498 K/mm3 (130-400); RED BLOOD COUNT 3.64 M/mm3 (4.20-5.60); REDCELL DISTRIBUTION WIDTH-CV 18.6 % (11.5-14.5)
[2021-01-23 08:11] LABS: HEMATOCRIT 30.6 % (42.0-52.0); MEAN CORPUSCULAR HEMOGLOBIN 25 pg (27.0-31.0)
[2021-01-23 08:15] VITALS: BP 98/64; PULSE 85; TEMP 98.3
[2021-01-23 09:00] LABS: ERYTHROCYTE SEDIMENTATION RATE 111 mm/hr (0-15)
[2021-01-23 09:07] LABS: ALBUMIN 2.6 gm/dL (3.5-5.0); BILIRUBIN,TOTAL 0.3 mg/dL (0.2-1.2); C-REACTIVE PROTEIN 4.49 mg/dL (0.00-0.50); CALCIUM 9.4 mg/dL (8.4-10.2); CREATININE, serum 0.69 mg/dL (0.72-1.25); POTASSIUM 3.9 mmol/L (3.5-4.5); TOTAL PROTEIN 8.8 gm/dL (6.2-8.1)
[2021-01-24 08:00] VITALS: BP 108/72; PULSE 95; TEMP 97.5
[2021-01-25 09:47] VITALS: BP 114/63; PULSE 80; TEMP 97.8
[2021-01-26 08:12] VITALS: BP 111/68; PULSE 93; TEMP 98.5
[2021-01-27 07:48] VITALS: BP 113/74; PULSE 93; TEMP 98.6
--- NOTE | 2021-01-27 10:16 | NUR ---
Cathflo was instilled into both lumens of PICC line and allowed to dwell for 30 mins. No blood return after initial dwell time. Blood return will be reassessed after additional 1 hr dwell time. Pt expresses understanding.
[2021-01-30 08:07] LABS: BASO # 0.1 K/mm3 (0.0-0.2); BASO % 0.7 % (0.0-2.0); EOS # 0.1 K/mm3 (0.0-0.7); EOS % 0.9 % (0-4.0); GRAN # 11.2 K/mm3 (1.4-6.5); GRAN % 78.2 % (42.2-75.2); HEMOGLOBIN 10.2 g/dl (13.5-18.0); MEAN CELL VOLUME 83 fl (80.0-100.0); MEAN CORPUSCULAR HEMOGLOBIN 25 pg (27.0-31.0); MEAN CORPUSCULAR HGB CONC 30 g/dl (33.0-37.0); MONO # 0.9 K/mm3 (0.1-0.6); PLATELET COUNT 469 K/mm3 (130-400); RED BLOOD COUNT 4.04 M/mm3 (4.20-5.60); REDCELL DISTRIBUTION WIDTH-CV 18.3 % (11.5-14.5)
[2021-01-30 08:09] LABS: HEMATOCRIT 33.6 % (42.0-52.0)
[2021-01-30 08:13] VITALS: BP 101/70; PULSE 97; TEMP 98.4
[2021-01-30 08:22] LABS: ALBUMIN 3.1 gm/dL (3.5-5.0); C-REACTIVE PROTEIN 3.93 mg/dL (0.00-0.50); CALCIUM 9.6 mg/dL (8.4-10.2); CREATININE, serum 0.72 mg/dL (0.72-1.25); TOTAL PROTEIN 8.9 gm/dL (6.2-8.1)
[2021-01-30 08:33] LABS: BILIRUBIN,TOTAL 0.3 mg/dL (0.2-1.2)
[2021-01-30 09:19] LABS: ERYTHROCYTE SEDIMENTATION RATE 78 mm/hr (0-15)
[2021-01-31 09:01] VITALS: BP 101/68; PULSE 84; TEMP 98
[2021-02-01 07:56] VITALS: BP 102/68; PULSE 85; TEMP 98.1
[2021-02-02 08:02] VITALS: BP 126/68; PULSE 85; TEMP 97.9
[2021-02-03 07:51] VITALS: BP 109/67; PULSE 83; TEMP 98
[2021-02-04 08:50] VITALS: BP 127/81; PULSE 82; TEMP 98.1
[2021-02-06 08:03] VITALS: BP 119/77; PULSE 88; TEMP 98.4
[2021-02-06 08:10] LABS: BASO # 0.1 K/mm3 (0.0-0.2); BASO % 1.5 % (0.0-2.0); EOS # 0.2 K/mm3 (0.0-0.7); EOS % 2.9 % (0-4.0); GRAN # 3.3 K/mm3 (1.4-6.5); GRAN % 56.3 % (42.2-75.2); HEMOGLOBIN 10.3 g/dl (13.5-18.0); LYMPH # 1.9 K/mm3 (1.2-3.4); LYMPH % 32.9 % (20.0-51.0); MEAN CELL VOLUME 82 fl (80.0-100.0); MEAN CORPUSCULAR HEMOGLOBIN 25 pg (27.0-31.0); MEAN CORPUSCULAR HGB CONC 31 g/dl (33.0-37.0); MEAN PLATELET VOLUME 9.3 fl (7.4-10.4); MONO # 0.4 K/mm3 (0.1-0.6); MONO % 6.2 % (1.7-9.3); PLATELET COUNT 457 K/mm3 (130-400); RED BLOOD COUNT 4.12 M/mm3 (4.20-5.60); REDCELL DISTRIBUTION WIDTH-CV 17.2 % (11.5-14.5)
[2021-02-06 08:11] LABS: HEMATOCRIT 33.8 % (42.0-52.0)
[2021-02-06 08:27] LABS: BILIRUBIN,TOTAL 0.2 mg/dL (0.2-1.2); C-REACTIVE PROTEIN 5.24 mg/dL (0.00-0.50); CALCIUM 9.6 mg/dL (8.4-10.2); CREATININE, serum 0.71 mg/dL (0.72-1.25); POTASSIUM 3.7 mmol/L (3.5-4.5); TOTAL PROTEIN 8.3 gm/dL (6.2-8.1)
[2021-02-06 08:32] LABS: ERYTHROCYTE SEDIMENTATION RATE 78 mm/hr (0-15)
[2021-02-07 08:19] VITALS: BP 107/68; PULSE 78; TEMP 97.5
[2021-02-08 08:03] VITALS: BP 111/75; PULSE 92; TEMP 97.7
[2021-02-10 07:53] VITALS: BP 107/71; PULSE 88; TEMP 98
[2021-02-13 08:41] VITALS: BP 115/77; PULSE 88; TEMP 98
[2021-02-13 08:44] LABS: BASO # 0.1 K/mm3 (0.0-0.2); BASO % 1.1 % (0.0-2.0); EOS # 0.3 K/mm3 (0.0-0.7); EOS % 3.5 % (0-4.0); GRAN # 5.7 K/mm3 (1.4-6.5); GRAN % 62.1 % (42.2-75.2); HEMOGLOBIN 10.7 g/dl (13.5-18.0); LYMPH # 2.5 K/mm3 (1.2-3.4); LYMPH % 27.3 % (20.0-51.0); MEAN CELL VOLUME 81 fl (80.0-100.0); MEAN CORPUSCULAR HEMOGLOBIN 25 pg (27.0-31.0); MEAN CORPUSCULAR HGB CONC 31 g/dl (33.0-37.0); MEAN PLATELET VOLUME 9.1 fl (7.4-10.4); MONO # 0.5 K/mm3 (0.1-0.6); MONO % 5.8 % (1.7-9.3); PLATELET COUNT 426 K/mm3 (130-400); RED BLOOD COUNT 4.22 M/mm3 (4.20-5.60); REDCELL DISTRIBUTION WIDTH-CV 18.3 % (11.5-14.5)
[2021-02-13 08:52] LABS: BILIRUBIN,TOTAL 0.3 mg/dL (0.2-1.2); C-REACTIVE PROTEIN 1.37 mg/dL (0.00-0.50); CALCIUM 8.8 mg/dL (8.4-10.2); CREATININE, serum 0.65 mg/dL (0.72-1.25); POTASSIUM 3.9 mmol/L (3.5-4.5); TOTAL PROTEIN 7.6 gm/dL (6.2-8.1)
[2021-02-13 08:56] LABS: HEMATOCRIT 34.2 % (42.0-52.0)
[2021-02-13 09:18] LABS: ERYTHROCYTE SEDIMENTATION RATE 27 mm/hr (0-15)
[2021-02-14 08:25] VITALS: BP 130/72; PULSE 82; TEMP 98
[2021-02-15 08:16] VITALS: BP 119/77; PULSE 90
--- NOTE | 2021-02-15 08:47 | NUR ---
Late entry- caps changed on PICC line on 02/08/21 by this nurse.
[2021-02-16 08:28] VITALS: BP 105/71; PULSE 89; TEMP 97.8
[~2021-02-17] VITALS: Ht 175.3 cm; Wt 134.7 kg
[2021-02-17 08:25] VITALS: BP 111/74; PULSE 87; TEMP 97.7
--- NOTE | 2021-02-17 09:30 | NUR ---
PT DISCHARGED HOME VIA AMBULATORY.
== END 2021-02-17 10:09 | disposition home or self-care (01) ==
LOC: EUO 07:30
PROVIDERS: Internal Medicine Infectious Disease; Surgery
DX: Z45.2 Encounter for adjustment and management of vascular access device (principal)
CPT/HCPCS: J1335; J1450; J2997

== ENCOUNTER → 2021-03-06 | Outpatient (CLI) | payer BC | LOC: COL.RAD 10:30 | DX: K65.1 Peritoneal abscess (principal) | CPT/HCPCS: Q9967 ==

== ENCOUNTER → 2021-05-01 | Outpatient (CLI) | payer BC ==
[2021-05-01 17:16] LABS: HEMATOCRIT 41.8 % (42.0-52.0); HEMOGLOBIN 13.6 g/dl (13.5-18.0); MEAN CELL VOLUME 81 fl (80.0-100.0); MEAN CORPUSCULAR HEMOGLOBIN 26 pg (27-31); MEAN CORPUSCULAR HGB CONC 33 g/dl (33.0-37.0); MEAN PLATELET VOLUME 8.9 fl (7.4-10.4); PLATELET COUNT 391 K/mm3 (130-400); RED BLOOD COUNT 5.18 M/mm3 (4.20-5.60); REDCELL DISTRIBUTION WIDTH-CV 16.3 % (11.5-14.5)
== END ==
LOC: COL.LAB 16:24
PROVIDERS: Surgery
DX: R10.9 Unspecified abdominal pain (principal); Z87.19 Personal history of other diseases of the digestive system

== ENCOUNTER → 2021-05-02 | Outpatient (CLI) | payer BC | LOC: COL.RAD 12:18 | DX: K42.9 Umbilical hernia without obstruction or gangrene (principal); K66.8 Other specified disorders of peritoneum; R10.9 Unspecified abdominal pain | CPT/HCPCS: Q9967 ==

== ENCOUNTER → 2021-05-11 | Outpatient (CLI) | payer BC | LOC: COL.RAD 10:03 | DX: R10.32 Left lower quadrant pain (principal) ==

== ENCOUNTER → 2021-06-30 | Outpatient (CLI) | payer BC | LOC: ZCOL.LAB 19:07 | DX: Z01.89 Encounter for other specified special examinations (principal) ==

== ENCOUNTER → 2021-07-20 | Outpatient (CLI) | payer BC | LOC: COL.RAD 09:00 | DX: K57.32 Diverticulitis of large intestine without perforation or abscess without bleeding (principal) ==

== ENCOUNTER → 2021-09-07 | Outpatient (CLI) | payer BC | LOC: ZCOL.LAB 16:37 | DX: T81.49XA Infection following a procedure, other surgical site, initial encounter (principal); S31.109A Unspecified open wound of abdominal wall, unspecified quadrant without penetration into peritoneal cavity, initial encounter ==

== ENCOUNTER → 2021-09-27 | Outpatient (CLI) | payer BC ==
[2021-09-27 08:46] LABS: HEMOGLOBIN 12.6 g/dl (13.5-18.0); MEAN CELL VOLUME 83 fl (80.0-100.0); MEAN CORPUSCULAR HEMOGLOBIN 27 pg (27-31); MEAN CORPUSCULAR HGB CONC 32 g/dl (33.0-37.0); MEAN PLATELET VOLUME 8.7 fl (7.4-10.4); PLATELET COUNT 389 K/mm3 (130-400); REDCELL DISTRIBUTION WIDTH-CV 15.3 % (11.5-14.5)
[2021-09-27 11:13] LABS: ALBUMIN 3.5 gm/dL (3.5-5.0); BILIRUBIN,TOTAL 0.3 mg/dL (0.2-1.2); CALCIUM 9.2 mg/dL (8.4-10.2); CREATININE, serum 0.76 mg/dL (0.72-1.25); POTASSIUM 3.9 mmol/L (3.5-4.5); TOTAL PROTEIN 7.8 gm/dL (6.2-8.1)
== END ==
LOC: COL.LAB 08:16
PROVIDERS: Surgery
DX: R10.9 Unspecified abdominal pain (principal); T81.49XA Infection following a procedure, other surgical site, initial encounter